=== PATIENT | female | born 1960 | race Caucasian/White ===

== ENCOUNTER → 2023-12-27 16:31 | Outpatient (CLI) | payer MEDICARE, OTHER, SELFPAY ==
--- NOTE | 2023-12-27 16:33 | DI.RAD.S_ITS ---
PROCEDURE: XR KNEE RT 3V INDICATIONS: R knee pain around the lateral tibia tubercle TECHNIQUE: 3 views of the knee were acquired. COMPARISON: None. FINDINGS: Bones: No fractures or dislocations. No suspicious bony lesions. No significant joint space narrowing or osteophytosis. Soft tissues: No joint effusion. No suspicious soft tissue calcifications. IMPRESSION: No acute bony abnormality or significant effusion. No significant degenerative change. Dictated by: Sandip Fernandez M.D. on 12/27/2023 at 17:04 Approved by: Sandip Fernandez M.D. on 12/27/2023 at 17:04
== END ==
PROVIDERS: PCP Nurse Practitioner Family; Referring Provider Nurse Practitioner Family; Visit Provider Nurse Practitioner Family
DX: M25.561 Pain in right knee (principal)
CPT/HCPCS: 73562

== ENCOUNTER → 2024-01-09 14:26 | Outpatient (CLI) | payer MEDICARE, OTHER, SELFPAY ==
--- NOTE | 2024-01-09 14:28 | DI.MG.S_ITS ---
BILATERAL DIGITAL SCREENING MAMMOGRAM 3D/2D WITH CAD: 01/09/2024 CLINICAL: Routine screening. Family history of breast cancer. Comparison is made to exams dated: 09/14/2021 mammogram - [facility], 02/28/2018 mammogram, and 04/07/2014 mammogram - [facility]. Both breasts are heterogeneously dense, which may obscure small masses (category c / 51-75% glandular tissue). Current study was also evaluated with a Computer Aided Detection (CAD) system. There are benign vascular calcifications in the left breast. No significant masses, calcifications, or other findings are seen in either breast. There has been no significant interval change. IMPRESSION: BENIGN There is no mammographic evidence of malignancy. A 1 year screening mammogram is recommended. Based on the Tyrer Cuzick model (a risk assessment model) the patient's lifetime risk is 9.0% and her 10 year risk is 4.3%. According to the ACR, ACS, and NCCN guidelines, an annual breast MRI exam along with mammogram is recommended if the patient's lifetime risk is 20% or greater. This exam was interpreted at Station ID: [id number]. NOTE: For mammograms, a report in lay terms will be sent to the patient. Approximately 15% of breast malignancies will not be visualized mammographically. In the management of a palpable breast mass, a negative mammogram must not discourage biopsy of a clinically suspicious lesion. Electronically Signed By: Rakan dacosta/dorota:01/10/2024 12:27:51 letter sent: Normal Exam ACR BI-RADS Category 2: Benign Finding(s) [id number]
--- NOTE | 2024-01-09 14:28 | DI.RAD.S_ITS ---
PROCEDURE: XR DEXA AXIAL SKELETON INDICATIONS: routine screening COMPARISON: None. FINDINGS: Lumbar Spine: L1-L3. Bone mineral density 0.931 g/cm2, T score -0.8. Left Hip: Bone mineral density 0.618 g/cm2, T score -2.7. Left Femoral Neck: Bone mineral density 0.528 g/cm2, T score -2.9. Right Hip: Bone mineral density 0.601 g/cm2, T score -2.8. Right Femoral Neck: Bone mineral density 0.541 g/cm2, T score -2.8. Fracture Risk Calculation (when applicable): 10-year fracture risk of a major osteoporotic fracture 14% and of a hip fracture 3.5%. (T score greater or equal to -1.0 to: NORMAL) (T score from -1.1 to -2.4: OSTEOPENIA) (T score less than or equal to -2.5: OSTEOPOROSIS) IMPRESSION: Osteoporosis. Follow-up guidelines as follows: Osteoporosis: Consider a repeat DEXA and Vertebral Fracture Assessment (VFA) exam in 2 years or sooner if medically necessary, to reassess this patient's status. Osteopenia: Consider a repeat DEXA in 2-3 years to reassess this patient's status, or if there is a new clinical indication. Normal: Consider a repeat DEXA in 5 years or sooner, or if there is a new clinical indication. Dictated by: Rakan Banks M.D. on 01/09/2024 at 15:24 Approved by: Rakan Banks M.D. on 01/09/2024 at 15:26
== END ==
PROVIDERS: PCP Nurse Practitioner Family; Referring Provider Nurse Practitioner Family; Visit Provider Nurse Practitioner Family
DX: M81.0 Age-related osteoporosis without current pathological fracture (principal); Z12.31 Encounter for screening mammogram for malignant neoplasm of breast; M85.89 Other specified disorders of bone density and structure, multiple sites; R92.333 Mammographic heterogeneous density, bilateral breasts; Z80.3 Family history of malignant neoplasm of breast
CPT/HCPCS: 77063; 77067; 77080

== ENCOUNTER 2024-07-09 00:05 | Inpatient (IN) | payer MEDICARE, OTHER, SELFPAY ==
[2024-07-09] VITALS (25 sets, daily range): BP systolic 106–156; BP diastolic 52–104; PULSE 86–130; RESP 12–47; TEMP 35.8–36.7; O2SAT 95–100; BMI 21.9
--- NOTE | 2024-07-09 | DI.RAD.S_ITS ---
PROCEDURE: XR GASTROGRAFIN CHALLENGE COMPARISON: [facility], CT, CT ABDOMEN PELVIS W CON, 07/09/2024, 1:02. INDICATIONS: small bowel obstruction FINDINGS: Enteric tube is seen terminating in the stomach with tip directed towards the fundus. Contrast material is seen opacifying the distal small bowel as well as the colon and rectum. IMPRESSION: Oral contrast material opacifies the colon. Approved by: Lukas Laguna M.D. on 07/09/2024 at 16:56
--- NOTE | 2024-07-09 00:24 | ED_ITS ---
HPI - General Adult General Chief complaint: Abdominal Pain Stated complaint: v/d upper gastorial pain Time Seen by Provider: 07/09/24 00:10 Source: patient and family Mode of arrival: Wheelchair History of Present Illness HPI narrative: Patient is a 63-year-old female. With a history reflux disease and asthma. Has had a hysterectomy. Is here for evaluation of less than 12 generalized abdominal pain and vomiting and also diarrhea. No urinary symptoms. Her symptoms have progressively worsened over the past couple hours. Has not tried anything for the symptoms prior to arrival. No chest pain or shortness of breath. No recent travel. No recent antibiotics. No fevers. No known sick contacts. No other members of the family having similar symptoms. Describes the pain located mostly in the epigastric region but states that it was really all over her abdomen. Related Data Home Medications Medication Instructions Recorded Confirmed esomeprazole magnesium [Nexium] PO 12/05/23 03/12/24 metoprolol tartrate 25 mg tablet 25 mg PO BID 12/05/23 03/12/24 Previous Rx's Medication Instructions Recorded benzonatate 100 mg capsule 100 mg PO BID-TID PRN cough #90 12/06/23 caps cyclobenzaprine 5 mg tablet 5 mg PO BEDTIME PRN muscle spasm 03/12/24 #30 tabs albuterol sulfate 90 mcg/actuation 2 puff inhalation Q6H PRN 07/01/24 aerosol inhaler shortness of breath or wheezing #8.5 grams Allergies Allergy/AdvReac Type Severity Reaction Status Date / Time No Known Drug Allergies Allergy Unverified 03/12/24 14:25 Review of Systems Review of Systems ROS Unobtainable: All systems reviewed & are unremarkable except as noted in HPI and below Patient History Medical History Muscle spasm of back Allergies (~2003) Depression (~2006) Osteopenia (~2014) Fracture (~2014) Foot pain (~2013) Asthma Chronic cough GERD (gastroesophageal reflux disease) (~2008) Osteoporosis (~2014) Surgical History (Updated 01/21/24 @ 18:53 by Annalisa Siddiqui) Anesthesia S/P ORIF (open reduction internal fixation) fracture (~2014) History of ovarian cystectomy (~1985) Family History (Updated 01/21/24 @ 18:54 by Annalisa Siddiqui) Father History of heart disease Mother History of heart disease Social History Smoking Status: Never smoker Smoking Status: Never smoker Substance Use Type: does not use Exam Initial Vital Signs Initial Vital Signs: Vital Signs Temperature 96.4 F L 07/09/24 00:15 Pulse Rate 130 H 07/09/24 00:15 Respiratory Rate 20 07/09/24 00:15 Blood Pressure 146/66 H 07/09/24 00:15 Pulse Oximetry 100 07/09/24 00:15 Oxygen Delivery Method Room Air 07/09/24 00:15 Const General: No comfortable (Uncomfortable appearing) HENMT Head: normal to inspection and normocephalic Resp Effort & Inspection: normal respiratory effort Auscultation: clear to auscultation bilaterally Cardio Rate: regular rate Rhythm: regular rhythm GI Inspection: normal to inspection and non-distended Palpation: soft, No firm, guarding, No rigid and tender Neuro General: patient alert, patient awake, patient oriented x3 and moves all extremities Extrem General: normal to inspection Course Orders Ordered: ED Orders 07/09/24 00:20 Complete Blood Count AUTO DIFF Stat Comprehensive Metabolic Panel Stat Lipase Stat 07/09/24 00:25 CT abdomen pelvis w con Stat 07/09/24 01:39 Consult to General Surgery Stat 07/09/24 01:44 Urine Microscopic Stat 07/09/24 01:49 CXR [XR chest 1V] Stat Discontinued Medications Al Hydrox/Mg Hydrox/Simethicone 20 ml/ Lidocaine HCl 15 ml 0 ml PO NOW ONE Stop: 07/09/24 00:16 Last Admin: 07/09/24 00:25 Dose: 35 ml Documented By: Sodium Chloride (Normal Saline 0.9%) 1,000 mls @ 1,000 mls/hr IV BOLUS ONE Stop: 07/09/24 01:25 Last Admin: 07/09/24 01:52 Dose: 1,000 mls/hr Documented By: Lidocaine HCl (Lidocaine 2% (Glydo) 6 Ml Gel) 6 ml TOP NOW ONE Stop: 07/09/24 01:44 Last Admin: 07/09/24 01:52 Dose: 6 ml Documented By: Ondansetron HCl (Ondansetron 4 Mg/2 Ml Inj) 4 mg IV NOW ONE Stop: 07/09/24 00:16 Last Admin: 07/09/24 00:25 Dose: 4 mg Documented By: Ondansetron HCl (Ondansetron 4 Mg/2 Ml Inj) 4 mg IV NOW ONE Stop: 07/09/24 01:44 Last Admin: 07/09/24 01:52 Dose: 4 mg Documented By: Pantoprazole Sodium (Pantoprazole 40 Mg Vial) 40 mg IV NOW ONE Stop: 07/09/24 00:16 Last Admin: 07/09/24 00:25 Dose: 40 mg Documented By: Vital Signs Vital signs: Vital Signs - 8 hr 07/09/24 00:15 07/09/24 00:28 07/09/24 00:30 Temperature 96.4 F L Pulse Rate 130 H 104 H 103 H Respiratory Rate 20 32 H 29 H Blood Pressure 146/66 H Pulse Oximetry 100 100 100 Oxygen Delivery Method Room Air 07/09/24 00:30 07/09/24 00:41 07/09/24 00:41 Temperature Pulse Rate 86 Respiratory Rate 24 Blood Pressure 135/78 114/52 L Pulse Oximetry 99 Oxygen Delivery Method Room Air 07/09/24 00:50 07/09/24 00:50 07/09/24 01:09 Temperature Pulse Rate 90 104 H Respiratory Rate 22 Blood Pressure 112/53 L Pulse Oximetry 98 Oxygen Delivery Method 07/09/24 01:30 07/09/24 02:00 07/09/24 02:04 Temperature Pulse Rate 109 H 118 H 101 H Respiratory Rate 22 26 H Blood Pressure Pulse Oximetry 97 100 100 Oxygen Delivery Method Room Air 07/09/24 02:04 Temperature Pulse Rate Respiratory Rate Blood Pressure 143/81 H Pulse Oximetry Oxygen Delivery Method Medical Decision Making Lab Data Lab results reviewed: Yes I reviewed the patient's lab results. 07/09/24 00:20 07/09/24 00:20 Labs: Lab Results 07/09/24 Range/Units 00:20 WBC 11.1 H (4.5-11.0) X10^3/uL RBC 4.71 (4.0-5.2) X10^6/uL Hgb 14.9 (12.0-16.0) g/dL Hct 43.5 (36-46) % MCV 92.3 (80-100) fL MCH 31.6 (26-34) PG MCHC 34.2 (30-36) % RDW 13.3 (11.6-14.8) % Plt Count 165 (150-400) X10^3/uL Neut % (Auto) 77.2 H (50-75) % Lymph % (Auto) 14.0 L (25-40) % [place] % (Auto) 6.0 (3-14) % Eos % (Auto) 2.3 (2-4) % Baso % (Auto) 0.5 (0-2) % Neut # (Auto) 8600 H (2053-6839) /uL Lymph # (Auto) 1600 (5422-5306) /uL [place] # (Auto) 700 (0-900) /uL Eos # (Auto) 300 (0-450) /uL Baso # (Auto) 100 (0-100) /uL Sodium 137 (137-145) mmol/L Potassium 4.1 (3.4-5.1) mmol/L Chloride 100 (98-107) mmol/L Carbon Dioxide 20 L (22-32) mmol/L BUN 22 H (7-17) mg/dL Creatinine 0.76 (0.52-1.04) mg/dL Estimated GFR > 60 (>60) mL/min BUN/Creatinine Ratio 28.9 H (6-22) Glucose 173 H (80-110) mg/dL Calcium 11.1 H (8.4-10.2) mg/dL Total Bilirubin 0.9 (0.2-1.3) mg/dL AST 42 H (14-36) IU/L ALT 21 (<35) IU/L Alkaline Phosphatase 85 (38-126) U/L Total Protein 8.8 H (6.3-8.2) g/dL Albumin 5.5 H (3.5-5.0) g/dL Globulin 3.3 (1.7-4.1) g/dL Albumin/Globulin Ratio 1.7 (1.0-2.8) Lipase 160 (23-300) U/L Urine Dip Bedside Urine Glucose Negative Bedside Urine Bilirubin - Negative Bedside Urine Ketone ++ 40 Urine Specific [place] 1.010 Bedside Urine Occult Blood ++ Bedside Urine pH 5.5 Bedside Urine Protein - Negative Bedside Urine Urobilinogen - Negative Bedside Urine Nitrite - Negative Bedside Urine Leukocytes - Negative Esterase Point of care testing: Urine Dip Bedside Urine Glucose Negative Bedside Urine Bilirubin - Negative Bedside Urine Ketone ++ 40 Urine Specific [place] 1.010 Bedside Urine Occult Blood ++ Bedside Urine pH 5.5 Bedside Urine Protein - Negative Bedside Urine Urobilinogen - Negative Bedside Urine Nitrite - Negative Bedside Urine Leukocytes - Negative Esterase Imaging Data CT scan - abdomen/pelvis: Radiologist's Impression: PROCEDURE: CT ABDOMEN PELVIS W CON INDICATIONS: Epigastric abdominal pain TECHNIQUE: After the administration of intravenous contrast, axial sections acquired from the lung bases to the pubic symphysis. Coronal and sagittal reformats were performed. For radiation dose reduction, the following was used: automated exposure control, adjustment of mA and/or kV according to patient size. COMPARISON: None. FINDINGS: Image quality: Diagnostic Lower chest: Mild basal atelectasis. Trace hiatal hernia. Mild distal esophageal wall thickening. Normal heart size. Liver: Unremarkable. Subcentimeter left lobe lesion is too small to characterize, most commonly a cyst Gallbladder and biliary system: Unremarkable, nondilated Pancreas: No ductal dilation. Spleen: Nonenlarged Adrenals: No discrete nodules Kidneys: No solid mass. No hydronephrosis. Vessels and lymph nodes: Main portal vein appears patent. Atherosclerotic calcifications are present. No pathologic lymph nodes by size criteria. Bowel and peritoneum: There is mild gastric distention. Small bowel obstruction, with moderately dilated loops measuring 3-4 cm in the distal jejunum, and ileum. The dilation extends up to the terminal ileum, with there is edematous fat stranding and soft tissue thickening, also involving the cecum in the expected region of the appendix. Small amount pelvic free fluid is present. Incidental note of jejunal loops mostly located in the right abdomen. Body wall: Unremarkable Pelvis: Bladder is unremarkable. Reproductive organs are unremarkable on limited CT evaluation right ovarian simple appearing 1.6 cm cyst is present. Bones: No acute or suspicious osseous finding IMPRESSION: Small bowel obstruction, with transition point at the terminal ileum. Moderate surrounding edema and soft tissue thickening in this region, also involving the cecum and the expected region of the appendix. Underlying inflammation, soft tissue lesion, or stricture are possible. Small amount pelvic free fluid, probably reactive. Mild wall thickening of the distal esophagus also seen, probably esophagitis. Other findings above. MDM Narrative Medical decision making narrative: Patient very uncomfortable appearing upon arrival. Upon my initial evaluation she was having generalized abdominal pain. Received medications upon arrival which did seem to help her nausea and her pain quite a bit. Labs are relatively unremarkable. CT scan concerning for small bowel obstruction. I did discuss the case with Dr. Degroot on-call for General surgery. The patient is having return of the nausea. Because of this will place an NG tube. Patient will require admission to the hospital for further evaluation and treatment. Discussed case with Dr. Donaldson who will admit. Discharge Plan Departure Patient Disposition: Admitted As Inpatient Clinical Impression: Small bowel obstruction
[2024-07-09] MEDS: PANTOPRAZOLE 40 MG VIAL IV (00:25)
[2024-07-09] MEDS: MAG HYDROX/ALUMINUM/SIMETH SUS 20 ML, LIDOCAINE VISCOUS 2% 15 ML PO (00:25)
[2024-07-09] MEDS: ONDANSETRON 4 MG/2 ML INJ IV ×4 (00:25→15:49)
[2024-07-09 00:38] LABS: Add Manual Diff / Slide Review NO; Basophils Absolute Auto 100 /uL (0-100); Basophils Percent Auto 0.5 % (0-2); Eosinophils Absolute Auto 300 /uL (0-450); Eosinophils Percent Auto 2.3 % (2-4); Hematocrit 43.5 % (36-46); Hemoglobin 14.9 g/dL (12.0-16.0); Lymphocytes Absolute Auto 1600 /uL (1100-4500); Mean Corpuscular HGB Conc 34.2 % (30-36); Mean Corpuscular Hemoglobin 31.6 PG (26-34); Mean Corpuscular Volume 92.3 fL (80-100); Monocytes Absolute Auto 700 /uL (0-900); Neutrophils Absolute Auto 8600 /uL (1500-7000); Neutrophils Percent Auto 77.2 % (50-75); Platelet Count 165 X10^3/uL (150-400); Red Blood Cell Count 4.71 X10^6/uL (4.0-5.2); Red Cell Distribution Width 13.3 % (11.6-14.8); White Blood Cell Count 11.1 X10^3/uL (4.5-11.0)
[2024-07-09 00:52] LABS: Alanine Aminotransferase 21 IU/L (<35); Albumin 5.5 g/dL (3.5-5.0); Albumin Globulin Ratio 1.7 (1.0-2.8); Alkaline Phosphatase 85 U/L (38-126); Aspartate Aminotransferase 42 IU/L (14-36); BUN Creatinine Ratio 28.9 (6-22); Bilirubin Total 0.9 mg/dL (0.2-1.3); Blood Urea Nitrogen 22 mg/dL (7-17); Calcium 11.1 mg/dL (8.4-10.2); Carbon Dioxide 20 mmol/L (22-32); Chloride 100 mmol/L (98-107); Estimated Glomerular Filt Rate > 60 mL/min (>60); Globulin 3.3 g/dL (1.7-4.1); Glucose 173 mg/dL (80-110); HEMOLYSIS 38 (0-50); Lipase 160 U/L (23-300); Potassium 4.1 mmol/L (3.4-5.1); Sodium 137 mmol/L (137-145); Total Protein 8.8 g/dL (6.3-8.2)
--- NOTE | 2024-07-09 01:49 | DI.RAD.S_ITS ---
PROCEDURE: XR CHEST 1V INDICATIONS: NG tube placement confirmation TECHNIQUE: One view of the chest was acquired. COMPARISON: None. FINDINGS: Surgical changes and devices: None. Lungs and pleura: Lungs are clear. No pleural effusions or pneumothorax. Mediastinum: Mediastinal contours appear normal. Heart size is normal. Bones and chest wall: No suspicious bony lesions. Overlying soft tissues appear unremarkable. IMPRESSION: 1. The nasogastric tube tip projects over the fundus of the stomach, and appears to be in appropriate position. 2. No acute cardiopulmonary abnormality is seen. Dictated by: Leon Pettit M.D. on 07/09/2024 at 8:16 Approved by: Leon Pettit M.D. on 07/09/2024 at 8:17
[2024-07-09] MEDS: LIDOCAINE 2% (GLYDO) 6 ML GEL TOP (01:52)
[2024-07-09] MEDS: SODIUM CHLORIDE 0.9% 1,000 ML 1000 ML IV (01:52)
--- NOTE | 2024-07-09 02:21 | PM.HP.1 ---
History of Present Illness History of Present Illness Date Patient Seen: 07/09/24 Time Patient Seen: 05:00 Chief complaint: abdominal pain, nausea Narrative: 63 y/o with PMH of hysterectomy, came to ED after smita developed abdominal pain and nausea. Images show small bowel obstruction. Had NGT placed for sucction. Discussed between ED and Sx. Admitted as NPO, on IVFs, with a diagnosis of SBO. [facility] Medical History Muscle spasm of back Allergies (~2003) Depression (~2006) Osteopenia (~2014) Fracture (~2014) Foot pain (~2013) Asthma Chronic cough GERD (gastroesophageal reflux disease) (~2008) Osteoporosis (~2014) Surgical History Anesthesia S/P ORIF (open reduction internal fixation) fracture (~2014) History of ovarian cystectomy (~1985) Family History Father History of heart disease Mother History of heart disease Social History household members: spouse Smoking Status: Never smoker alcohol intake: current Meds Home Medications and Allergies Home Medications Medication Instructions Recorded Confirmed Type esomeprazole magnesium [Nexium] PO 12/05/23 03/12/24 History metoprolol tartrate 25 mg tablet 50 mg PO BID 12/05/23 07/09/24 History benzonatate 100 mg capsule 100 mg PO BID-TID PRN cough #90 12/06/23 07/09/24 Rx caps cyclobenzaprine 5 mg tablet 5 mg PO BEDTIME PRN muscle spasm 03/12/24 07/09/24 Rx #30 tabs albuterol sulfate 90 mcg/actuation 2 puff inhalation Q6H PRN 07/01/24 07/09/24 Rx aerosol inhaler shortness of breath or wheezing #8.5 grams esomeprazole magnesium 20 mg 20 mg PO BID 07/09/24 07/09/24 History capsule,delayed release (Nexium) Allergies Allergy/AdvReac Type Severity Reaction Status Date / Time No Known Drug Allergies Allergy Unverified 03/12/24 14:25 Review of Systems Constitutional Comments: w/o fever or chills w/o weight loss Cardiovascular Comments: w/o chest pain Respiratory Comments: w/o excessive shortness of breath, has chronic mild asthma Gastrointestinal Comments: nausea, abdominal pain Genitourinary Comments: w/o voiding difficulties or dysuria Musculoskeletal Comments: w/o myalgia Exam Vital Signs (past 8 hours): - 07/09/24 00:15 07/09/24 00:28 07/09/24 00:30 Temperature 96.4 F L Pulse Rate 130 H 104 H 103 H Respiratory Rate 20 32 H 29 H Blood Pressure 146/66 H Pulse Oximetry 100 100 100 Oxygen Delivery Method Room Air 07/09/24 00:30 07/09/24 00:41 07/09/24 00:41 Temperature Pulse Rate 86 Respiratory Rate 24 Blood Pressure 135/78 114/52 L Pulse Oximetry 99 Oxygen Delivery Method Room Air 07/09/24 00:50 07/09/24 00:50 07/09/24 01:09 Temperature Pulse Rate 90 104 H Respiratory Rate 22 Blood Pressure 112/53 L Pulse Oximetry 98 Oxygen Delivery Method 07/09/24 01:30 07/09/24 02:00 07/09/24 02:04 Temperature Pulse Rate 109 H 118 H 101 H Respiratory Rate 22 26 H Blood Pressure Pulse Oximetry 97 100 100 Oxygen Delivery Method Room Air 07/09/24 02:04 Temperature Pulse Rate Respiratory Rate Blood Pressure 143/81 H Pulse Oximetry Oxygen Delivery Method Oxygen Delivery Method Room Air Const Other: in no distress HENMT Other: normocephalic, NGT in place Eyes Other: normal appearance, EOMI Neck Other: supple Resp Other: normal respiratory effort Cardio Other: RRR GI Other: mininimal abdominal distension, hypoactive sounds Skin Other: not jaundiced, w/o rashes Neuro Other: w/o deficits Extrem Other: w/o swelling Psych Other: appropriate mood, lucid Objective Labs 07/09/24 00:20 07/09/24 00:20 Labs: Laboratory Results - last 24 hr 07/09/24 00:20 WBC 11.1 H RBC 4.71 Hgb 14.9 Hct 43.5 MCV 92.3 MCH 31.6 MCHC 34.2 RDW 13.3 Plt Count 165 Neut % (Auto) 77.2 H Lymph % (Auto) 14.0 L [place] % (Auto) 6.0 Eos % (Auto) 2.3 Baso % (Auto) 0.5 Neut # (Auto) 8600 H Lymph # (Auto) 1600 [place] # (Auto) 700 Eos # (Auto) 300 Baso # (Auto) 100 Sodium 137 Potassium 4.1 Chloride 100 Carbon Dioxide 20 L BUN 22 H Creatinine 0.76 Estimated GFR > 60 BUN/Creatinine Ratio 28.9 H Glucose 173 H Calcium 11.1 H Total Bilirubin 0.9 AST 42 H ALT 21 Alkaline Phosphatase 85 Total Protein 8.8 H Albumin 5.5 H Globulin 3.3 Albumin/Globulin Ratio 1.7 Lipase 160 Assessment & Plan Assessment and plan (1) Small bowel obstruction: Status: Acute (2) Depression: Status: Acute (3) Asthma: Qualifiers: Asthma complication type: uncomplicated Asthma persistence: persistent Asthma severity: moderate Qualified Code(s): J45.40 - Moderate persistent asthma, uncomplicated Status: Acute (4) GERD (gastroesophageal reflux disease): Qualifiers: Esophagitis presence: without esophagitis Qualified Code(s): K21.9 - Gastro-esophageal reflux disease without esophagitis Status: Acute Assessment & Plan narrative: SBO - NPO, NGT for low, intermittent sucction - evaluation by surgery for possible OR, for now conservative management Asthma - albuterol prn GERD - PPI IV Depression - restart home medications with restarted PO intake DVT prophylaxis - SCDs Time-Based Coding :: [TOTAL MINUTES] spent with patient and on the chart (including review of chart, obtaining history, exam, reviewing outside data, placing orders, documenting exam and treatment plan, and counseling patient) on [DATE].
[2024-07-09 02:32] LABS: RBC Urine 0-1/HPF (0-5/HPF); Urine Volume 10mL (spun)
[2024-07-09 02:35] LABS: Bacteria Urine None Seen; Culture Indicated Urine Cult Not Indicated; Squamous Epithelial Cell Urine 0-1 /HPF (0-5/HPF); WBC Urine None Seen (0-5/HPF)
[2024-07-09] MEDS: METOCLOPRAMIDE 10 MG/2 ML INJ IV (02:48)
[2024-07-09] MEDS: ACETAMINOPHEN IV 1,000 MG/100 ML VIAL 400 MG IV (02:48)
[2024-07-09] MEDS: LACTATED RINGERS 1,000 ML 100 ML IV ×2 (02:48→13:14)
--- NOTE | 2024-07-09 06:40 | PC.NURSE ---
Admit/NOC Shift Note- Patient arrived to room via stretcher from ER at 0400. Patient walked on her own with steady gait from stretcher to bathroom and then to bed with out issue. Patient alert and oriented and able to make needs known to staff. medication list reviewed with patient, admit questions done, and physical assessment done. Patient oriented to bed and bed controls, room, bathroom, lights, phone, and call howard/tv remote. safety measures in place. Patient agrees to call for assistance as needed. Call howrad and phone within reach. will continue to monitor.
[2024-07-09 06:44] LABS: Add Manual Diff / Slide Review NO; Basophils Percent Auto 0.2 % (0-2); Eosinophils Percent Auto 0.3 % (2-4); Hematocrit 36.5 % (36-46); Hemoglobin 12.5 g/dL (12.0-16.0); Mean Corpuscular HGB Conc 34.2 % (30-36); Mean Corpuscular Hemoglobin 31.5 PG (26-34); Mean Corpuscular Volume 92.2 fL (80-100); Monocytes Percent Auto 5.2 % (3-14); Neutrophils Percent Auto 87.3 % (50-75); Platelet Count 196 X10^3/uL (150-400); Red Blood Cell Count 3.95 X10^6/uL (4.0-5.2); Red Cell Distribution Width 13.1 % (11.6-14.8); White Blood Cell Count 6.8 X10^3/uL (4.5-11.0)
[2024-07-09 06:45] LABS: Basophils Absolute Auto 0 /uL (0-100); Eosinophils Absolute Auto 0 /uL (0-450); Lymphocytes Absolute Auto 500 /uL (1100-4500); Monocytes Absolute Auto 400 /uL (0-900); Neutrophils Absolute Auto 5900 /uL (1500-7000)
[2024-07-09 06:49] LABS: BUN Creatinine Ratio 28.8 (6-22); Blood Urea Nitrogen 19 mg/dL (7-17); Calcium 9.2 mg/dL (8.4-10.2); Carbon Dioxide 23 mmol/L (22-32); Chloride 105 mmol/L (98-107); Estimated Glomerular Filt Rate > 60 mL/min (>60); Glucose 133 mg/dL (80-110); HEMOLYSIS < 15 (0-50); Potassium 3.9 mmol/L (3.4-5.1); Sodium 136 mmol/L (137-145)
--- NOTE | 2024-07-09 07:47 | P.CONS_ITS ---
History of Present Illness Consult details Date Patient Seen: 07/09/24 Time Patient Seen: 07:47 Chief complaint: abdominal pain, nausea Narrative: Evonne is a 63 year old woman who presented to the ER overnight complaining of several hours of abdominal pain, nausea. A CT scan shows a small bowel obstruction with an appearance transition point in the ileum in the low mid pelvis. There is some free fluid in the pelvis. She has never had a small bowel obstruction before. A nasogastric tube was placed. She feels improved since NG tube decompression. Meds Home Medications and Allergies Home Medications Medication Instructions Recorded Confirmed Type esomeprazole magnesium [Nexium] PO 12/05/23 03/12/24 History metoprolol tartrate 25 mg tablet 50 mg PO BID 12/05/23 07/09/24 History benzonatate 100 mg capsule 100 mg PO BID-TID PRN cough #90 12/06/23 07/09/24 Rx caps cyclobenzaprine 5 mg tablet 5 mg PO BEDTIME PRN muscle spasm 03/12/24 07/09/24 Rx #30 tabs albuterol sulfate 90 mcg/actuation 2 puff inhalation Q6H PRN 07/01/24 07/09/24 Rx aerosol inhaler shortness of breath or wheezing #8.5 grams esomeprazole magnesium 20 mg 20 mg PO BID 07/09/24 07/09/24 History capsule,delayed release (Nexium) Allergies Allergy/AdvReac Type Severity Reaction Status Date / Time No Known Drug Allergies Allergy Unverified 03/12/24 14:25 Exam Vital Signs (past 8 hours): - 07/09/24 00:15 07/09/24 00:28 07/09/24 00:30 Temperature 96.4 F L Pulse Rate 130 H 104 H 103 H Respiratory Rate 20 32 H 29 H Blood Pressure 146/66 H Pulse Oximetry 100 100 100 Oxygen Delivery Method Room Air 07/09/24 00:30 07/09/24 00:41 07/09/24 00:41 Temperature Pulse Rate 86 Respiratory Rate 24 Blood Pressure 135/78 114/52 L Pulse Oximetry 99 Oxygen Delivery Method Room Air 07/09/24 00:50 07/09/24 00:50 07/09/24 01:09 Temperature Pulse Rate 90 104 H Respiratory Rate 22 Blood Pressure 112/53 L Pulse Oximetry 98 Oxygen Delivery Method 07/09/24 01:30 07/09/24 02:00 07/09/24 02:04 Temperature Pulse Rate 109 H 118 H 101 H Respiratory Rate 22 26 H Blood Pressure Pulse Oximetry 97 100 100 Oxygen Delivery Method Room Air 07/09/24 02:04 07/09/24 02:10 07/09/24 02:10 Temperature Pulse Rate 96 H Respiratory Rate 18 Blood Pressure 143/81 H 146/85 H Pulse Oximetry 100 Oxygen Delivery Method 07/09/24 02:20 07/09/24 02:20 07/09/24 02:30 Temperature Pulse Rate 102 H 115 H Respiratory Rate 15 26 H Blood Pressure 143/84 H Pulse Oximetry 95 97 Oxygen Delivery Method Room Air 07/09/24 02:30 07/09/24 02:40 07/09/24 02:40 Temperature Pulse Rate 127 H Respiratory Rate 47 H Blood Pressure 139/80 150/104 H Pulse Oximetry 97 Oxygen Delivery Method 07/09/24 02:50 07/09/24 02:50 07/09/24 03:00 Temperature Pulse Rate 95 H Respiratory Rate 21 Blood Pressure 156/71 H 141/67 H Pulse Oximetry 98 Oxygen Delivery Method 07/09/24 03:00 07/09/24 03:10 07/09/24 03:10 Temperature Pulse Rate 94 H 98 H Respiratory Rate 12 25 H Blood Pressure 127/61 Pulse Oximetry 95 96 Oxygen Delivery Method 07/09/24 03:20 07/09/24 03:20 07/09/24 03:30 Temperature Pulse Rate 99 H Respiratory Rate 22 Blood Pressure 129/62 147/76 H Pulse Oximetry 95 Oxygen Delivery Method 07/09/24 03:30 07/09/24 03:40 07/09/24 03:40 Temperature Pulse Rate 95 H 94 H Respiratory Rate 14 14 Blood Pressure 145/78 H Pulse Oximetry 95 96 Oxygen Delivery Method 07/09/24 03:45 07/09/24 03:50 07/09/24 03:50 Temperature Pulse Rate 112 H Respiratory Rate 18 Blood Pressure 146/80 H Pulse Oximetry 96 Oxygen Delivery Method Room Air Room Air Oxygen Delivery Method Room Air Narrative Exam Narrative: Abdomen is soft, moderately tender to palpation in the low mid abdomen Const General: healthy appearing Resp Effort & Inspection: normal respiratory effort Objective Labs 07/09/24 06:29 07/09/24 06:29 Labs: Laboratory Results - last 24 hr 07/09/24 07/09/24 07/09/24 00:20 01:44 06:29 WBC 11.1 H 6.8 RBC 4.71 3.95 L Hgb 14.9 12.5 Hct 43.5 36.5 MCV 92.3 92.2 MCH 31.6 31.5 MCHC 34.2 34.2 RDW 13.3 13.1 Plt Count 165 196 Neut % (Auto) 77.2 H 87.3 H Lymph % (Auto) 14.0 L 7.0 L [place] % (Auto) 6.0 5.2 Eos % (Auto) 2.3 0.3 L Baso % (Auto) 0.5 0.2 Neut # (Auto) 8600 H 5900 Lymph # (Auto) 1600 500 L [place] # (Auto) 700 400 Eos # (Auto) 300 0 Baso # (Auto) 100 0 Sodium 137 136 L Potassium 4.1 3.9 Chloride 100 105 Carbon Dioxide 20 L 23 BUN 22 H 19 H Creatinine 0.76 0.66 Estimated GFR > 60 > 60 BUN/Creatinine Ratio 28.9 H 28.8 H Glucose 173 H 133 H Calcium 11.1 H 9.2 Total Bilirubin 0.9 AST 42 H ALT 21 Alkaline Phosphatase 85 Total Protein 8.8 H Albumin 5.5 H Globulin 3.3 Albumin/Globulin Ratio 1.7 Lipase 160 Urine RBC 0-1/hpf Urine WBC None seen Ur Squamous Epith Cells 0-1 /hpf Urine Bacteria None seen Ur Culture Indicated? Cult not indicated Vol Urine Centrifuged 10ml (spun) [facility], [facility] Medical History Muscle spasm of back Allergies (~2003) Depression (~2006) Osteopenia (~2014) Fracture (~2014) Foot pain (~2013) Asthma Chronic cough GERD (gastroesophageal reflux disease) (~2008) Osteoporosis (~2014) Surgical History Anesthesia S/P ORIF (open reduction internal fixation) fracture (~2014) History of ovarian cystectomy (~1985) Family History Father History of heart disease Mother History of heart disease Social History household members: spouse Tobacco & Substance Use Smoking Status: Never smoker alcohol intake: current Assessment & Plan Assessment and plan (1) Small bowel obstruction: Status: Acute Plan 63-year-old woman with an acute high-grade small bowel obstruction. I recommend we proceed with a diagnostic laparoscopy as the CT appears to show a high-grade small-bowel obstruction. I discussed the possibility of small-bowel resection. She would like to proceed. Time-Based Coding :: [TOTAL MINUTES] spent with patient and on the chart (including review of chart, obtaining history, exam, reviewing outside data, placing orders, documenting exam and treatment plan, and counseling patient) on [DATE].
--- NOTE | 2024-07-09 12:29 | CM.DANOTE ---
Initial DCP Assessment Note Pt is a 63 yo female, resident of [place], arrives with abd pain and nausea, patient scheduled for surgery this afternoon- diagnostic laparoscopy; CT appears to show a high-grade small-bowel obstruction. PCP: Kassidy Ojeda Payer: DENICE/Jonny Reviewed chart, pt discussed in multidisciplinary rounds this morning. Patient is indp and active at baseline and is not expected to have any needs from this CM team. No barriers identified at this time to patient's safe discharge home w/family to assist; close outpatient f/u recommended. CM team will plan to follow clinical course closely in case any DC needs or concerns arise. LEONIE Whalen Discharge Planning/Care Management CM Discharge Assessment Start: 07/09/24 12:26 Freq: Status: Active Protocol: Document 07/09/24 12:26 RUDI (Rec: 07/09/24 12:29 RUDI [id number]) Discharge Planning Assessment Assigned Investigator Internal Affairs LEONIE Donohue DPOA/Assigned Designee Name Emmanuel Sánchez, spouse Contact Information [phone] Advance Directives? No History Provided By Patient,Medical Record Prior Living Arrangements House Household Members spouse Type of transporation used prior to Drives own vehicle admit Independent with ADL's Yes Is patient alert and oriented? Yes Barriers to Discharge No Discharge Plan Home Transportation Arrangement Family Referrals Initiated None needed
[2024-07-09] MEDS: ACETAMINOPHEN 325 MG TABLET 650 MG PO (13:14)
--- NOTE | 2024-07-09 15:17 | PC.NURSE ---
Day shift: Patient's HR up to 160 while ambulating to BR. Decreased to 120s when back to bed this afternoon. Notified MD Murrell. He stated he was not concerned since she is deconditioned and she remains in sinus rhythm. Patient had 2 large watery BMs after gastrogafin put into NG tube. NG tube clamped for study from approximately 12-4pm. Surgery likely cancelled due to gastrogofin study. Will continue to monitor.
[2024-07-09] MEDS: METOPROLOL ER 50 MG TABLET PO (15:49)
--- NOTE | 2024-07-09 17:09 | P.HP_ITS ---
History of Present Illness History of Present Illness Date Patient Seen: 07/09/24 Time Patient Seen: 09:00 Chief complaint: abdominal pain, nausea Narrative: Per overnight provider, 63 y/o with PMH of hysterectomy, exploratory laparoscopy came to ED after smita developed abdominal pain and nausea. Images show small bowel obstruction. Had NGT placed for sucction. Discussed between ED and Sx. Admitted as NPO, on IVFs, with a diagnosis of SBO. Interval events: Patient was seen later this morning, after surgeon. She started having gas this morning, nausea resolved. Gastrograffin this afternoon shows no obstruction. Will remove NG tube tonight and start on clears. [facility] Medical History Muscle spasm of back Allergies (~2003) Depression (~2006) Osteopenia (~2014) Fracture (~2014) Foot pain (~2013) Asthma Chronic cough GERD (gastroesophageal reflux disease) (~2008) Osteoporosis (~2014) Surgical History Anesthesia S/P ORIF (open reduction internal fixation) fracture (~2014) History of ovarian cystectomy (~1985) Family History Father History of heart disease Mother History of heart disease Social History household members: spouse Smoking Status: Never smoker alcohol intake: current Meds Home Medications and Allergies Home Medications Medication Instructions Recorded Confirmed Type metoprolol tartrate 25 mg tablet 50 mg PO BID 12/05/23 07/09/24 History benzonatate 100 mg capsule 100 mg PO BID-TID PRN cough #90 12/06/23 07/09/24 Rx caps cyclobenzaprine 5 mg tablet 5 mg PO BEDTIME PRN muscle spasm 03/12/24 07/09/24 Rx #30 tabs albuterol sulfate 90 mcg/actuation 2 puff inhalation Q6H PRN 07/01/24 07/09/24 Rx aerosol inhaler shortness of breath or wheezing #8.5 grams esomeprazole magnesium 20 mg 20 mg PO BID 07/09/24 07/09/24 History capsule,delayed release (Nexium) Allergies Allergy/AdvReac Type Severity Reaction Status Date / Time No Known Drug Allergies Allergy Unverified 03/12/24 14:25 Review of Systems Review of Systems Narrative: All other systems reviewed with the patient and are negative unless otherwise stated. Exam Vital Signs (past 8 hours): - 07/09/24 15:49 07/09/24 16:28 Pulse Rate 118 H 110 H Oxygen Delivery Method Room Air Oxygen Flow Rate 0 Narrative Exam Narrative: General:? Patient is well developed and well nourished, in no distress at this time. NG tube still in place, no output currently. Chest:? Normal AP diameter and contour without kyphoscoliosis, no tachypnea, equal chest rise bilaterally. Lungs:? CTA b/l no wheezing rhonchi or rales. Cardio:?RRR no m/r/g. Abdomen: S NT ND. Musculoskeletal:? Muscle strength and tone are equal within normal limits, no deformity. Extremities: No edema or joint effusions. No cyanosis or clubbing. Skin:? Pale,? Warm to touch,dry and intact without rashes, ulcerations or petechiae.? Neuro:? Alert and orientated x3,? sensation to touch intact in all extremities, no gross deficits noted of cranial nerves. Psych:? Patient has a well-kept appearance, appropriate affect, mental status attitude thought context and judgment are appropriate for age. Objective Labs 07/09/24 06:29 07/09/24 06:29 Labs: Laboratory Results - last 24 hr 07/09/24 07/09/24 07/09/24 00:20 01:44 06:29 WBC 11.1 H 6.8 RBC 4.71 3.95 L Hgb 14.9 12.5 Hct 43.5 36.5 MCV 92.3 92.2 MCH 31.6 31.5 MCHC 34.2 34.2 RDW 13.3 13.1 Plt Count 165 196 Neut % (Auto) 77.2 H 87.3 H Lymph % (Auto) 14.0 L 7.0 L [place] % (Auto) 6.0 5.2 Eos % (Auto) 2.3 0.3 L Baso % (Auto) 0.5 0.2 Neut # (Auto) 8600 H 5900 Lymph # (Auto) 1600 500 L [place] # (Auto) 700 400 Eos # (Auto) 300 0 Baso # (Auto) 100 0 Sodium 137 136 L Potassium 4.1 3.9 Chloride 100 105 Carbon Dioxide 20 L 23 BUN 22 H 19 H Creatinine 0.76 0.66 Estimated GFR > 60 > 60 BUN/Creatinine Ratio 28.9 H 28.8 H Glucose 173 H 133 H Calcium 11.1 H 9.2 Total Bilirubin 0.9 AST 42 H ALT 21 Alkaline Phosphatase 85 Total Protein 8.8 H Albumin 5.5 H Globulin 3.3 Albumin/Globulin Ratio 1.7 Lipase 160 Urine RBC 0-1/hpf Urine WBC None seen Ur Squamous Epith Cells 0-1 /hpf Urine Bacteria None seen Ur Culture Indicated? Cult not indicated Vol Urine Centrifuged 10ml (spun) Assessment & Plan Assessment & Plan narrative: SBO - Now resolved after NG tube. Discussed with surgeon extensively today. - Okay to remove NG tube, start clears. Advance diet as tolerated. Will order breakfast for tomorrow AM Asthma - albuterol prn GERD - PPI IV Depression - no current medications H/o atrial tachycardia - developed run of SVT on monitor today. Improved with metoprolol. Continue metoprolol BID. DVT prophylaxis - SCDs, low risk patient is ambulatory Code: Full, surrogate is patient's spouse I have utilized all available immediate resources to obtain, update, or review the patient's current medications. Dispo: patient admitted under inpatient status. Discharge home tomorrow if tolerating a diet. Additional history obtained via discussions with the overnight provider and surgeon. These discussions contributed to the creation of the above assessment and plan. I have reviewed patient's presenting documentation, labs, and imaging personally. Time-Based Coding :: [TOTAL MINUTES] spent with patient and on the chart (including review of chart, obtaining history, exam, reviewing outside data, placing orders, documenting exam and treatment plan, and counseling patient) on [DATE]. Quality VTE Deep Vein Thrombosis/Pulmonary Embolism Present on Admission: No
[2024-07-10] VITALS: BP 115/57; PULSE 85; RESP 18; TEMP 36.5; O2SAT 97
[2024-07-10] MEDS: ACETAMINOPHEN 325 MG TABLET 650 MG PO (05:06)
[2024-07-10 05:55] VITALS: BP 122/67; PULSE 86; RESP 18; TEMP 36.2; O2SAT 94
[2024-07-10 08:00] VITALS: BP 146/93; PULSE 90; RESP 12; TEMP 36.6; O2SAT 98
[2024-07-10 08:59] VITALS: BP 146/93; PULSE 90
[2024-07-10] MEDS: METOPROLOL ER 50 MG TABLET PO (08:59)
--- NOTE | 2024-07-10 08:59 | PM.CALLCOV.1 ---
Call Coverage Note Note Date of Patient Contact: 07/10/24 Time of Patient Contact: 09:00 Narrative of Care Provided: gastrografin study reviewed contrast within the colon sbo resolved. Advance diet if tolerant ok for dc home
--- NOTE | 2024-07-10 10:55 | PM.DS.1 ---
History of Present Illness History of Present Illness Chief complaint: abdominal pain, nausea Narrative: From H&P: 63 y/o with PMH of hysterectomy, exploratory laparoscopy came to ED after smita developed abdominal pain and nausea. Images show small bowel obstruction. Had NGT placed for sucction. Discussed between ED and Sx. Admitted as NPO, on IVFs, with a diagnosis of SBO. Interval events: Patient was seen later this morning, after surgeon. She started having gas this morning, nausea resolved. Gastrograffin this afternoon shows no obstruction. Will remove NG tube tonight and start on clears. Discharge Providers Provider Date of admission: 07/09/24 02:13 Discharge Date: 07/10/24 Primary care physician: LY Barfield- Consults: 07/09/24 01:39 Consult to General Surgery Stat Comment: Consulting Provider: Omar Degroot Reason for consultation: SOB Has provider been notified: Yes Discharge provider: Daren Tam MD Summary Hospital Course Discharge Diagnosis: 1. SBO, present on admission and resolved. 2. Asthma, stable. 3. GERD, stable. 4. Depression, stable. 5. H/o atrial tachycardia, stable. Hospital Course: She was admitted with a bowel obstruction initially decompressed with a NG tube. She improved rapidly, this is removed and an upper GI was unremarkable. She was able to advance diet in the day of discharge without difficulty and denied any abdominal pain. She will be discharged with reassurance. Status at Discharge Cognitive/behavioral status at discharge: oriented Functional status at discharge: independent ambulation Overall status at discharge: patient is back to baseline Time Spent with Patient Time spent: Greater than 30 minutes Exam Vital Signs (past 8 hours): - 07/10/24 05:55 07/10/24 08:00 07/10/24 08:59 Temperature 97.1 F L 97.8 F Pulse Rate 86 90 90 Respiratory Rate 18 12 Blood Pressure 122/67 146/93 H 146/93 H Pulse Oximetry 94 98 Oxygen Flow Rate 0 0 Oxygen Delivery Method Room Air Oxygen Flow Rate 0 Narrative Exam Narrative: NAD, alert and oriented. Fluent speech. Lungs are clear, normal rate and effort. Heart is regular, no murmur gallop or rub. Abdomen is soft, non distended. Extremities are free of edema. Objective Imaging Multiple studies:: Radiologist's impression: Chest x-ray: 1. The nasogastric tube tip projects over the fundus of the stomach, and appears to be in appropriate position. 2. No acute cardiopulmonary abnormality is seen. Abdomen and pelvis CT: Small bowel obstruction, with transition point at the terminal ileum. Moderate surrounding edema and soft tissue thickening in this region, also involving the cecum and the expected region of the appendix. Underlying inflammation, soft tissue lesion, or stricture are possible. Small amount pelvic free fluid, probably reactive. Mild wall thickening of the distal esophagus also seen, probably esophagitis. Other findings above. Gastrografin study: IMPRESSION: Oral contrast material opacifies the colon. Labs 07/09/24 06:29 07/09/24 06:29 [facility] Medical History Muscle spasm of back Allergies (~2003) Depression (~2006) Osteopenia (~2014) Fracture (~2014) Foot pain (~2013) Asthma Chronic cough GERD (gastroesophageal reflux disease) (~2008) Osteoporosis (~2014) Surgical History Anesthesia S/P ORIF (open reduction internal fixation) fracture (~2014) History of ovarian cystectomy (~1985) Family History Father History of heart disease Mother History of heart disease Social History household members: spouse Smoking Status: Never smoker alcohol intake: current Discharge Assessment & Plan Assessment and Plan Assessment: 1. SBO, present on admission and resolved. 2. Asthma, stable. 3. GERD, stable. 4. Depression, stable. 5. H/o atrial tachycardia, stable. Plan of Treatment: Stable for discharge home, close follow up with PCP. Vigilance for future episodes of abdominal pain, nausea or vomiting. Discharge Plan Discharge Plan Patient Disposition: Home Provider Discharge Comment: Stable for discharge home, no recurrent or persistent symptoms of bowel obstruction. Discharge orders & Medications Prescriptions: Continued benzonatate 100 mg capsule 100 mg PO BID-TID PRN (Reason: cough) Qty: 90 3RF albuterol sulfate 90 mcg/actuation HFA aerosol inhaler 2 puff inhalation Q6H PRN (Reason: shortness of breath or wheezing) Qty: 8.5 0RF Rx Instructions: if using the albuterol >2x/week to schedule an appointment to discuss maintenance inhaler metoprolol tartrate 25 mg tablet 50 mg PO BID cyclobenzaprine 5 mg tablet 5 mg PO BEDTIME PRN (Reason: muscle spasm) Qty: 30 0RF esomeprazole magnesium [Nexium] 20 mg Capsule,Delayed Release(Dr/Ec) 20 mg PO BID Follow up/Referrals: Kassidy Ojeda FNP-[facility] [Primary Care Provider] - Diet/Activity/Treatments Diet comment: As tolerated. Soft mechanical and low residue for a few days. Activity: As tolerated. Visit Report/Discharge Packet Instructions: DI for Small Bowel Obstruction Stand Alone Forms: Patient Portal/API, Stroke Signs & Symptoms Discharge Data Primary Care Provider: Kassidy Ojeda Quality VTE Deep Vein Thrombosis/Pulmonary Embolism Present on Admission: No
--- NOTE | 2024-07-10 14:38 | CM.DPC ---
DCP Discharge Home Per Surgeon, pt continued to have bowel movements and NGT was removed and pt was tolerating advancing diet and medically stable to discharge home with outpt f/u and no concerns noted. LEONIE Hernandez
== END 2024-07-10 11:41 | disposition home or self-care (01) | DRG 389 ==
LOC: ED 01:45 → AC 02:13
PROVIDERS: Admitting Provider Internal Medicine; Emergency Provider Emergency Medicine; PCP Nurse Practitioner Family; Referring Provider Emergency Medicine; Visit Provider Internal Medicine
DX: K56.609 Unspecified intestinal obstruction, unspecified as to partial versus complete obstruction (principal); I47.10 Supraventricular tachycardia, unspecified; F32.A Depression, unspecified; J45.40 Moderate persistent asthma, uncomplicated; K21.9 Gastro-esophageal reflux disease without esophagitis
CPT/HCPCS: 36415; 71045; 74018; 74177; 80048; 80053; 81003; 81015; 83690; 85025; 96361; 96365; 96375; 96376; 99232; 99284; 99285; J0134; J2405; J2470; J2765; Q9967

== ENCOUNTER → 2024-07-17 12:29 | Outpatient (CLI) | payer MEDICARE, OTHER, SELFPAY ==
[2024-07-09 04:14] VITALS: BMI 21.9
[2024-07-17 13:09] LABS: Add Manual Diff / Slide Review NO; Basophils Absolute Auto 100 /uL (0-100); Basophils Percent Auto 0.9 % (0-2); Eosinophils Absolute Auto 400 /uL (0-450); Eosinophils Percent Auto 6.3 % (2-4); Hematocrit 37.5 % (36-46); Hemoglobin 12.7 g/dL (12.0-16.0); Lymphocytes Absolute Auto 2100 /uL (1100-4500); Lymphocytes Percent Auto 37.5 % (25-40); Mean Corpuscular HGB Conc 33.8 % (30-36); Mean Corpuscular Hemoglobin 31.3 PG (26-34); Mean Corpuscular Volume 92.6 fL (80-100); Monocytes Absolute Auto 500 /uL (0-900); Monocytes Percent Auto 8.1 % (3-14); Neutrophils Absolute Auto 2600 /uL (1500-7000); Neutrophils Percent Auto 47.2 % (50-75); Platelet Count 310 X10^3/uL (150-400); Red Blood Cell Count 4.05 X10^6/uL (4.0-5.2); Red Cell Distribution Width 13.2 % (11.6-14.8); White Blood Cell Count 5.6 X10^3/uL (4.5-11.0)
[2024-07-17 13:35] LABS: Blood Urea Nitrogen 15 mg/dL (7-17); Carbon Dioxide 27 mmol/L (22-32); Chloride 103 mmol/L (98-107); HEMOLYSIS < 15 (0-50); Sodium 138 mmol/L (137-145)
[2024-07-17 13:36] LABS: BUN Creatinine Ratio 18.5 (6-22); Calcium 10.2 mg/dL (8.4-10.2); Estimated Glomerular Filt Rate > 60 mL/min (>60); Glucose 101 mg/dL (80-110)
== END ==
PROVIDERS: PCP Nurse Practitioner Family; Referring Provider Internal Medicine Cardiovascular Disease; Visit Provider Internal Medicine Cardiovascular Disease
DX: I47.10 Supraventricular tachycardia, unspecified (principal)
CPT/HCPCS: 36415; 80048; 85025

== ENCOUNTER 2024-07-26 22:51 | Inpatient (IN) | payer MEDICARE, OTHER, SELFPAY ==
[2024-07-09 04:14] VITALS: BMI 21.9
--- NOTE | 2024-07-26 22:53 | ED.GENADULT ---
HPI - General Adult General Chief complaint: Abdominal Pain Stated complaint: poss bowel obstruction, vomiting Time Seen by Provider: 07/26/24 22:53 Source: patient, RN notes reviewed and old records reviewed Mode of arrival: Family Vehicle Limitations: no limitations History of Present Illness HPI narrative: 63-year-old female with a past medical history of asthma reflux, has had a prior hysterectomy hysterectomy and ex lap with bowel obstruction hospitalization from 07/09-07/10 2024. Patient was treated conservatively with NG tube and bowel obstruction resolved. Was doing well until earlier today when she started to have increasing epigastric pain abdominal pain and distention and then started having nausea and vomiting later this evening. Patient states she has been having some bowel movements but has not been able to pass gas in the last day. She states this feels very similar to her recent bowel obstruction. No reports of fevers. No chest pain or shortness of breath. No back or flank pain reported. No urinary symptoms reported. Patient did have a cardiac ablation last Saturday she was taking an aspirin as well as metoprolol daily. No history of tobacco, occasional alcohol, no recreational drugs. Patient's primary care provider is Kassidy Ojeda. Related Data Home Medications Medication Instructions Recorded Confirmed esomeprazole magnesium 20 mg 20 mg PO BID 07/09/24 07/15/24 capsule,delayed release (Nexium) calcium carbonate (Tums Ultra) 400 mg PO DAILY 07/13/24 07/15/24 metoprolol succinate 25 mg 25 mg PO DAILY 07/27/24 07/27/24 tablet,extended release 24 hr Previous Rx's Medication Instructions Recorded benzonatate 100 mg capsule 100 mg PO BID-TID PRN cough #90 12/06/23 caps cyclobenzaprine 5 mg tablet 5 mg PO BEDTIME PRN muscle spasm 03/12/24 #30 tabs albuterol sulfate 90 mcg/actuation 2 puff inhalation Q6H PRN 07/01/24 aerosol inhaler shortness of breath or wheezing #8.5 grams Allergies Allergy/AdvReac Type Severity Reaction Status Date / Time No Known Drug Allergies Allergy Unverified 07/15/24 11:33 Review of Systems Review of Systems ROS Unobtainable: All systems reviewed & are unremarkable except as noted in HPI and below Patient History Medical History Muscle spasm of back Allergies (~2003) Depression (~2006) Osteopenia (~2014) Fracture (~2014) Foot pain (~2013) Asthma Chronic cough GERD (gastroesophageal reflux disease) (~2008) Osteoporosis (~2014) Surgical History Anesthesia S/P ORIF (open reduction internal fixation) fracture (~2014) History of ovarian cystectomy (~1985) Family History Father History of heart disease Mother History of heart disease Social History household members: spouse Smoking Status: Never smoker alcohol intake: current Smoking Status: Never smoker alcohol intake frequency: 0-2 drinks per day Substance Use Type: does not use Exam Narrative Exam Narrative: GENERAL: Alert and oriented x three, patient moderate distress HEENT: Head normocephalic, atraumatic, EOMI, pupils reactive, face symmetric, moist mucous membranes NECK: Supple, full range of motion CARDIOVASCULAR: Regular rate and rhythm without murmurs, rubs or gallops. RESPIRATORY: Breath sounds equal bilaterally, no wheezes rales or rhonchi. ABDOMEN: Soft, midepigastric tenderness, patient is distended. Hypoactive bowel sounds all 4 quadrants. No guarding or rebound, rigidity, no mass, patient has active emesis in the department. : No CVA tenderness EXTREMITIES: Normal range of motion, no clubbing or edema. Neurovascularly intact NEUROLOGICAL: Cranial nerves II through XII grossly intact. Moving all extremities SKIN: Warm, dry, no petechiae, no rashes or lesions. Initial Vital Signs Initial Vital Signs: Vital Signs Temperature 97.7 F 07/26/24 22:58 Pulse Rate 133 H 07/26/24 22:58 Respiratory Rate 25 H 07/26/24 22:58 Blood Pressure 173/85 H 07/26/24 22:58 Pulse Oximetry 99 07/26/24 22:58 Oxygen Delivery Method Room Air 07/26/24 22:58 Course Orders Ordered: ED Orders 07/26/24 22:57 CT abdomen pelvis w con Stat EKG-12 Lead Stat 07/26/24 23:02 Complete Blood Count AUTO DIFF Stat Comprehensive Metabolic Panel Stat Lipase Stat Discontinued Medications Sodium Chloride (Normal Saline 0.9%) 1,000 mls @ 1,000 mls/hr IV BOLUS ONE Stop: 07/26/24 23:56 Last Infusion: 07/27/24 00:26 Dose: Infused Lidocaine HCl (Lidocaine 2% (Glydo) 6 Ml Gel) 6 ml TOP NOW ONE Stop: 07/27/24 00:02 Last Admin: 07/27/24 00:22 Dose: 6 ml Morphine Sulfate (Morphine 4 Mg/Ml Inj) 4 mg IV NOW ONE Stop: 07/26/24 23:00 Last Admin: 07/26/24 23:04 Dose: 4 mg Ondansetron HCl (Ondansetron 4 Mg/2 Ml Inj) 4 mg IV NOW ONE Stop: 07/26/24 22:58 Last Admin: 07/26/24 23:04 Dose: 4 mg Ondansetron HCl (Ondansetron 4 Mg/2 Ml Inj) 4 mg IV NOW ONE Stop: 07/27/24 00:24 Vital Signs Vital signs: Vital Signs - 8 hr 07/26/24 22:58 Temperature 97.7 F Pulse Rate 133 H Respiratory Rate 25 H Blood Pressure 173/85 H Pulse Oximetry 99 Oxygen Delivery Method Room Air Medical Decision Making Lab Data 07/26/24 23:02 07/26/24 23:02 Labs: Lab Results 07/26/24 Range/Units 23:02 WBC 12.1 H (4.5-11.0) X10^3/uL RBC 4.54 (4.0-5.2) X10^6/uL Hgb 14.2 (12.0-16.0) g/dL Hct 42.1 (36-46) % MCV 92.6 (80-100) fL MCH 31.2 (26-34) PG MCHC 33.7 (30-36) % RDW 13.1 (11.6-14.8) % Plt Count 328 (150-400) X10^3/uL Neut % (Auto) 59.9 (50-75) % Lymph % (Auto) 29.5 (25-40) % Chase % (Auto) 7.3 (3-14) % Eos % (Auto) 2.7 (2-4) % Baso % (Auto) 0.6 (0-2) % Neut # (Auto) 7200 H (0856-6711) /uL Lymph # (Auto) 3600 (6374-8684) /uL Chase # (Auto) 900 (0-900) /uL Eos # (Auto) 300 (0-450) /uL Baso # (Auto) 100 (0-100) /uL Sodium 135 L (137-145) mmol/L Potassium 3.5 D (3.4-5.1) mmol/L Chloride 106 (98-107) mmol/L Carbon Dioxide 15 L (22-32) mmol/L BUN 19 H (7-17) mg/dL Creatinine 0.85 (0.52-1.04) mg/dL Estimated GFR > 60 (>60) mL/min BUN/Creatinine Ratio 22.4 H (6-22) Glucose 146 H (80-110) mg/dL Calcium 10.6 H (8.4-10.2) mg/dL Total Bilirubin 0.7 (0.2-1.3) mg/dL AST 41 H (14-36) IU/L ALT 22 (<35) IU/L Alkaline Phosphatase 87 (38-126) U/L Total Protein 8.4 H (6.3-8.2) g/dL Albumin 5.0 (3.5-5.0) g/dL Globulin 3.4 (1.7-4.1) g/dL Albumin/Globulin Ratio 1.5 (1.0-2.8) Lipase 149 (23-300) U/L Imaging Data CT scan - abdomen/pelvis: Radiologist's Impression: [address] [address] [address] Scan Report Signed Patient: Evonne Sánchez MR#: [id number] : 1960 Acct:[id number] Age/Sex: 63 / F Date of Service: 07/26/24 Loc: ED Accession Number: [id number] Procedure: CT abdomen pelvis w con Ordering Provider: Madeleine Christy D.O. PROCEDURE: CT ABDOMEN PELVIS W CON INDICATIONS: vomiting, epigastric pain, recent SBO, similar symptoms TECHNIQUE: After the administration of intravenous contrast, axial sections acquired from the lung bases to the pubic symphysis. Coronal and sagittal reformats were performed. For radiation dose reduction, the following was used: automated exposure control, adjustment of mA and/or kV according to patient size. COMPARISON: [facility], CT, CT ABDOMEN PELVIS W CON, 07/09/2024, 1:02. FINDINGS: Image quality: Diagnostic. Lower Chest: No significant findings. ABDOMEN: Liver: No solid mass. Steatosis. Gallbladder: No radiopaque gallstones or wall thickening. Biliary ducts: No biliary dilation. Pancreas: No ductal dilation. Spleen: Size is within normal limits. Adrenal Glands: No adrenal nodules. Kidneys and Ureters: No hydronephrosis. No solid mass. No complex renal cystic lesion which requires follow up. Stomach and Bowel: Dilated fluid-filled loops of small bowel greatest dimension measuring approximately 3.8 cm. Transition point is not clearly identified although suspected to be in the mid lower quadrant series 4, image 32, series image 101. Peritoneum: No abnormal intraperitoneal fluid. No free air. Ventral Wall: No significant ventral hernia. Abdominal Nodes: No retroperitoneal or mesenteric adenopathy by size criteria. Vessels: Aorta and inferior vena cava are normal in size. PELVIS: Pelvic Organs: Unremarkable. Bladder: No bladder wall thickening, accounting for underdistention. Pelvic Nodes: No enlarged lymph nodes. Miscellaneous: No inguinal hernias are seen. Bones: No aggressive osseous abnormality. IMPRESSION: Dilated fluid-filled loops of small bowel most consistent with partial small bowel obstruction. Dictated by: Elenita Watts M.D. on 07/26/2024 at 23:52 Approved by: Elenita Watts M.D. on 07/26/2024 at 23:56 ECG Data Attestation: I personally reviewed and interpreted this ECG as follows: Prior ECG tracings: not available for review Interpretation: Sinus rhythm rate of 97 ID 142 QRS is 72 QTC of 477, no acute ST elevation. No priors for comparison. MDM Narrative Medical decision making narrative: 63-year-old female presents with symptoms and concerns for bowel obstruction patient had similar symptoms on 07/09/2024 had observation overnight was treated conservatively with an NG tube had resolution without any surgical intervention. She states this is very similar symptoms presents with active emesis. Patient had labs, EKG and CT abdomen pelvis suspect recurrent bowel obstruction based on patient's current symptoms. Patient's initial heart rate was 30 but after not vomiting improved with medication patient's shortly dropped back down into the 90s. Labs has a white count of 12.1 hemoglobin of 14 platelets of 328, chemistry shows sodium 135 potassium 3.5 chloride of 106 CO2 of 15 with a BUN 19 creatinine 0.85 glucose is 146 calcium slightly elevated at 10.6. Bilirubin is normal AST is 41 ALT is 22 alk-phos is 87 total protein is elevated at 8.4 lipase is normal at 149 EKG shows sinus rhythm with a rate of [address] abdomen and pelvis dilated fluid-filled bowel loops consistent with a partial small-bowel obstruction. Patient received fluids, Zofran and pain medication on recheck she is feeling much improved. Vitals signs have normalized. Awaiting Ct report. Spoke with Dr. Peña, general surgery happy to see patient would recommend NG tube. Reviewed labs, CT findings and patient's last hospitalization. Spoke with Dr. Laboy who accepts patient for inpatient. NG tube placed by nursing 250mL out immediately. Post CXR NGT is in appropriate position Discharge Plan Departure Patient Disposition: Admitted As Inpatient Clinical Impression: Partial bowel obstruction Admit Date/Time: 07/27/24 00:14 Admit Provider: Jersey Laboy
--- NOTE | 2024-07-26 22:57 | DI.CT.S_ITS ---
PROCEDURE: CT ABDOMEN PELVIS W CON INDICATIONS: vomiting, epigastric pain, recent SBO, similar symptoms TECHNIQUE: After the administration of intravenous contrast, axial sections acquired from the lung bases to the pubic symphysis. Coronal and sagittal reformats were performed. For radiation dose reduction, the following was used: automated exposure control, adjustment of mA and/or kV according to patient size. COMPARISON: [facility], CT, CT ABDOMEN PELVIS W CON, 07/09/2024, 1:02. FINDINGS: Image quality: Diagnostic. Lower Chest: No significant findings. ABDOMEN: Liver: No solid mass. Steatosis. Gallbladder: No radiopaque gallstones or wall thickening. Biliary ducts: No biliary dilation. Pancreas: No ductal dilation. Spleen: Size is within normal limits. Adrenal Glands: No adrenal nodules. Kidneys and Ureters: No hydronephrosis. No solid mass. No complex renal cystic lesion which requires follow up. Stomach and Bowel: Dilated fluid-filled loops of small bowel greatest dimension measuring approximately 3.8 cm. Transition point is not clearly identified although suspected to be in the mid lower quadrant series 4, image 32, series image 101. Peritoneum: No abnormal intraperitoneal fluid. No free air. Ventral Wall: No significant ventral hernia. Abdominal Nodes: No retroperitoneal or mesenteric adenopathy by size criteria. Vessels: Aorta and inferior vena cava are normal in size. PELVIS: Pelvic Organs: Unremarkable. Bladder: No bladder wall thickening, accounting for underdistention. Pelvic Nodes: No enlarged lymph nodes. Miscellaneous: No inguinal hernias are seen. Bones: No aggressive osseous abnormality. IMPRESSION: Dilated fluid-filled loops of small bowel most consistent with partial small bowel obstruction. Dictated by: Elenita Watts M.D. on 07/26/2024 at 23:52 Approved by: Elenita Watts M.D. on 07/26/2024 at 23:56
[2024-07-26 22:58] VITALS: BP 173/85; PULSE 133; RESP 25; TEMP 36.5; O2SAT 99
[2024-07-26 23:01] VITALS: PULSE 128; O2SAT 99
[2024-07-26] MEDS: SODIUM CHLORIDE 0.9% 1,000 ML 1000 ML IV (23:04)
[2024-07-26] MEDS: MORPHINE 4 MG/ML INJ IV (23:04)
[2024-07-26] MEDS: ONDANSETRON 4 MG/2 ML INJ IV (23:04)
--- NOTE | 2024-07-26 23:07 | EKG_ITS ---
[address] [address] Test Date: 2024-07-26 Pat Name: Evonne Sánchez Department: [facility] Room: Gender: Female Shoe Shanker: EMILY KIRAN : 1960 Requested By: Order Number: [id number] Reading MD: Daren Tam Measurements Intervals Atkins Rate: 97 P: 72 OR: 142 QRS: 51 QRSD: 72 T: 69 QT: 376 QTc: 477 Interpretive Statements Normal sinus rhythm Anteroseptal infarct , age undetermined Electronically Signed On 07-27-2024 7:55:43 PST by Daren Tam
[2024-07-26 23:10] LABS: Add Manual Diff / Slide Review NO; Basophils Absolute Auto 100 /uL (0-100); Basophils Percent Auto 0.6 % (0-2); Eosinophils Absolute Auto 300 /uL (0-450); Eosinophils Percent Auto 2.7 % (2-4); Hematocrit 42.1 % (36-46); Hemoglobin 14.2 g/dL (12.0-16.0); Lymphocytes Absolute Auto 3600 /uL (1100-4500); Lymphocytes Percent Auto 29.5 % (25-40); Mean Corpuscular HGB Conc 33.7 % (30-36); Mean Corpuscular Hemoglobin 31.2 PG (26-34); Mean Corpuscular Volume 92.6 fL (80-100); Monocytes Absolute Auto 900 /uL (0-900); Monocytes Percent Auto 7.3 % (3-14); Neutrophils Absolute Auto 7200 /uL (1500-7000); Neutrophils Percent Auto 59.9 % (50-75); Platelet Count 328 X10^3/uL (150-400); Red Blood Cell Count 4.54 X10^6/uL (4.0-5.2); Red Cell Distribution Width 13.1 % (11.6-14.8); White Blood Cell Count 12.1 X10^3/uL (4.5-11.0)
[2024-07-26 23:22] LABS: Alanine Aminotransferase 22 IU/L (<35); Albumin Globulin Ratio 1.5 (1.0-2.8); Alkaline Phosphatase 87 U/L (38-126); Aspartate Aminotransferase 41 IU/L (14-36); BUN Creatinine Ratio 22.4 (6-22); Bilirubin Total 0.7 mg/dL (0.2-1.3); Blood Urea Nitrogen 19 mg/dL (7-17); Calcium 10.6 mg/dL (8.4-10.2); Carbon Dioxide 15 mmol/L (22-32); Chloride 106 mmol/L (98-107); Estimated Glomerular Filt Rate > 60 mL/min (>60); Globulin 3.4 g/dL (1.7-4.1); Glucose 146 mg/dL (80-110); HEMOLYSIS < 15 (0-50); Lipase 149 U/L (23-300); Potassium 3.5 mmol/L (3.4-5.1); Sodium 135 mmol/L (137-145); Total Protein 8.4 g/dL (6.3-8.2)
[2024-07-26 23:30] VITALS: PULSE 79; RESP 14; O2SAT 98
[2024-07-26 23:58] VITALS: BP 146/65; PULSE 96; RESP 15; O2SAT 97
[2024-07-27] VITALS (15 sets, daily range): BP systolic 130–174; BP diastolic 65–103; PULSE 89–125; RESP 14–20; TEMP 35.6–36.6; O2SAT 94–100; BMI 21.4
--- NOTE | 2024-07-27 00:19 | DI.RAD.S_ITS ---
PROCEDURE: XR CHEST 1V INDICATIONS: ng tube placement TECHNIQUE: One view of the chest was acquired. COMPARISON: [facility], CR, XR CHEST 1V, 07/09/2024, 1:55. FINDINGS: Surgical changes and devices: Nasogastric tube is present with distal tip projecting below the left hemidiaphragm. Lungs and pleura: Lungs are clear. No pleural effusions or pneumothorax. Mediastinum: Mediastinal contours appear normal. Heart size is normal. Bones and chest wall: No suspicious bony lesions. Overlying soft tissues appear unremarkable. IMPRESSION: No acute pulmonary process. Nasogastric tube in appropriate location. Dictated by: Elenita Watts M.D. on 07/27/2024 at 0:31 Approved by: Elenita Watts M.D. on 07/27/2024 at 0:31
[2024-07-27] MEDS: LIDOCAINE 2% (GLYDO) 6 ML GEL TOP (00:22)
[2024-07-27] MEDS: ONDANSETRON 4 MG/2 ML INJ IV ×3 (00:27→10:30)
[2024-07-27] MEDS: MORPHINE 4 MG/ML INJ IV (00:33)
[2024-07-27] MEDS: SODIUM CHLORIDE 0.9% 1,000 ML 100 ML IV ×2 (01:10→09:59)
[2024-07-27] MEDS: PROMETHAZINE 12.5 MG SUPP PR (01:53)
[2024-07-27] MEDS: HYDROMORPHONE 0.5 MG INJ IV ×2 (02:56→07:53)
--- NOTE | 2024-07-27 03:14 | PM.HP.1 ---
History of Present Illness History of Present Illness Chief complaint: poss bowel obstruction, vomiting Narrative: 63-year-old female with path medical history of GERD, asthma, hysterectomy, ex lap, and with recent small bowel obstruction discharge on July 10, 2024 presents again with abdominal pain/distension and nausea/vomiting. Per the patient's report the patient was doing fine after her discharge. However this evening, the patient started to have increasing abdominal distention, abdominal epigastric pain and nausea and vomiting. Patient states she has not been able to pass gas the whole day. The patient was concerned that the symptoms suggest that she has another recurrent SBO. Otherwise the patient denies any fever, chills, chest pain, shortness of breath or syncope. In our emergency room, the patient was hemodynamically stable stable though slightly hypertensive. WBC was 12 and bicarb was 15 but otherwise labs were benign. CT scan of the abdomen shows partial small bowel obstruction. General surgeon was called who recommended again to place the NGT with conservative management. [facility] Medical History Muscle spasm of back Allergies (~2003) Depression (~2006) Osteopenia (~2014) Fracture (~2014) Foot pain (~2013) Asthma Chronic cough GERD (gastroesophageal reflux disease) (~2008) Osteoporosis (~2014) Surgical History Anesthesia S/P ORIF (open reduction internal fixation) fracture (~2014) History of ovarian cystectomy (~1985) Family History Father History of heart disease Mother History of heart disease Social History household members: spouse Smoking Status: Never smoker alcohol intake: current Meds Home Medications and Allergies Home Medications Medication Instructions Recorded Confirmed Type benzonatate 100 mg capsule 100 mg PO BID-TID PRN cough #90 12/06/23 07/27/24 Rx caps cyclobenzaprine 5 mg tablet 5 mg PO BEDTIME PRN muscle spasm 03/12/24 07/27/24 Rx #30 tabs albuterol sulfate 90 mcg/actuation 2 puff inhalation Q6H PRN 07/01/24 07/27/24 Rx aerosol inhaler shortness of breath or wheezing #8.5 grams esomeprazole magnesium 20 mg 20 mg PO BID 07/09/24 07/27/24 History capsule,delayed release (Nexium) calcium carbonate (Tums Ultra) 400 mg PO DAILY PRN Heartburn 07/13/24 07/27/24 History metoprolol succinate 25 mg 25 mg PO DAILY 07/27/24 07/27/24 History tablet,extended release 24 hr Allergies Allergy/AdvReac Type Severity Reaction Status Date / Time No Known Drug Allergies Allergy Unverified 07/15/24 11:33 Review of Systems Review of Systems ROS: Yes All systems reviewed with the patient and are negative except as otherwise documented Exam Vital Signs (past 8 hours): - 07/26/24 22:58 07/26/24 23:01 07/26/24 23:30 Temperature 97.7 F Pulse Rate 133 H 128 H 79 Respiratory Rate 25 H 14 Blood Pressure 173/85 H Pulse Oximetry 99 99 98 Oxygen Delivery Method Room Air Oxygen Flow Rate 07/26/24 23:58 07/26/24 23:58 07/27/24 00:00 Temperature Pulse Rate 96 H Respiratory Rate 15 Blood Pressure 146/65 H 142/66 H Pulse Oximetry 97 Oxygen Delivery Method Oxygen Flow Rate 07/27/24 00:00 07/27/24 00:30 07/27/24 00:30 Temperature Pulse Rate 92 H 98 H Respiratory Rate 14 19 Blood Pressure 139/85 Pulse Oximetry 94 100 Oxygen Delivery Method Oxygen Flow Rate 07/27/24 00:40 07/27/24 01:15 Temperature 96.0 F L Pulse Rate 89 Respiratory Rate 20 Blood Pressure 153/93 H Pulse Oximetry 97 Oxygen Delivery Method Room Air Oxygen Flow Rate 0 Oxygen Delivery Method Room Air Oxygen Flow Rate 0 Narrative Exam Narrative: GENERAL: The patient is not in any acute distressed. Awake and alert.NGT in placed HEENT: Nonicteric sclerae, PERRLA, EOMI. Oropharynx clear. Moist mucous membranes. Conjunctivae appear well perfused. HEART: Regular rate and rhythm without murmurs. No lower extremities edema. LUNGS: Clear to auscultation bilaterally. No wheezing, crackles or rhonchi ABDOMEN: Soft, slightly distended positive bowel sounds, nontender. SKIN: No rash, no excessive bruising, petechiae, or purpura. NEUROLOGIC: AxO x 3. Cranial nerves II-XII intact without motor/sensory deficit. Objective Labs 07/26/24 23:02 07/26/24 23:02 Labs: Laboratory Results - last 24 hr 07/26/24 23:02 WBC 12.1 H RBC 4.54 Hgb 14.2 Hct 42.1 MCV 92.6 MCH 31.2 MCHC 33.7 RDW 13.1 Plt Count 328 Neut % (Auto) 59.9 Lymph % (Auto) 29.5 [place] % (Auto) 7.3 Eos % (Auto) 2.7 Baso % (Auto) 0.6 Neut # (Auto) 7200 H Lymph # (Auto) 3600 [place] # (Auto) 900 Eos # (Auto) 300 Baso # (Auto) 100 Sodium 135 L Potassium 3.5 D Chloride 106 Carbon Dioxide 15 L BUN 19 H Creatinine 0.85 Estimated GFR > 60 BUN/Creatinine Ratio 22.4 H Glucose 146 H Calcium 10.6 H Total Bilirubin 0.7 AST 41 H ALT 22 Alkaline Phosphatase 87 Total Protein 8.4 H Albumin 5.0 Globulin 3.4 Albumin/Globulin Ratio 1.5 Lipase 149 Assessment & Plan Assessment & Plan narrative: Partial recurring small bowel obstruction. Admit the patient to medical inpatient. NPO. IV fluid. Continue NG tube suctioning. PRN pain medications. PRN IV Anti-emetics. General surgery consulted and appreciate further input and management. Dehydration. IV fluid. GERD resume home PPI when able to take PO. Asthma no sign of exacerbation. PRN inhalers. DVT prophylaxis SCDs and heparin Q. Supervisor [facility] Department status full code. Disposition likely in 2 to 3 days. Time-Based Coding :: [TOTAL MINUTES] spent with patient and on the chart (including review of chart, obtaining history, exam, reviewing outside data, placing orders, documenting exam and treatment plan, and counseling patient) on [DATE].
[2024-07-27] MEDS: METOCLOPRAMIDE 10 MG/2 ML INJ IV ×2 (03:37→09:00)
[2024-07-27 04:15] LABS: Appearance Urine UA CLEAR; Bilirubin Urine UA NEGATIVE (NEGATIVE); Color Urine UA YELLOW; Glucose Urine UA NEGATIVE (Negative); Ketones Urine UA 1+ (NEGATIVE); Leukocyte Esterase Urine UA NEGATIVE (NEGATIVE); Nitrite Urine UA NEGATIVE (Negative); Occult Blood Urine UA 1+ (Negative); Protein Urine UA NEGATIVE (Negative); Specific Gravity Urine UA 1.015 (1.000-1.035); Urobilinogen Urine UA 0.2 E.U./dL (0.2)
[2024-07-27 04:24] LABS: Bacteria Urine Few (2-10); Culture Indicated Urine Cult Not Indicated; Hyaline Casts Urine 0-1/LPF; RBC Urine 1-5/HPF (0-5/HPF); Squamous Epithelial Cell Urine 1-5 /HPF (0-5/HPF); Urine Volume 10mL (spun); WBC Urine None Seen (0-5/HPF)
[2024-07-27 05:20] LABS: Add Manual Diff / Slide Review NO; Basophils Absolute Auto 0 /uL (0-100); Basophils Percent Auto 0.1 % (0-2); Eosinophils Absolute Auto 0 /uL (0-450); Eosinophils Percent Auto 0.6 % (2-4); Hematocrit 44.7 % (36-46); Hemoglobin 14.9 g/dL (12.0-16.0); Lymphocytes Absolute Auto 300 /uL (1100-4500); Mean Corpuscular HGB Conc 33.2 % (30-36); Mean Corpuscular Hemoglobin 31.1 PG (26-34); Mean Corpuscular Volume 93.7 fL (80-100); Monocytes Absolute Auto 500 /uL (0-900); Neutrophils Absolute Auto 5200 /uL (1500-7000); Neutrophils Percent Auto 86.3 % (50-75); Platelet Count 235 X10^3/uL (150-400); Red Blood Cell Count 4.77 X10^6/uL (4.0-5.2); Red Cell Distribution Width 13.2 % (11.6-14.8)
[2024-07-27 05:27] LABS: Alanine Aminotransferase 18 IU/L (<35); Albumin 4.3 g/dL (3.5-5.0); Albumin Globulin Ratio 1.4 (1.0-2.8); Alkaline Phosphatase 75 U/L (38-126); Aspartate Aminotransferase 34 IU/L (14-36); BUN Creatinine Ratio 28.8 (6-22); Bilirubin Total 0.7 mg/dL (0.2-1.3); Blood Urea Nitrogen 19 mg/dL (7-17); Calcium 9.2 mg/dL (8.4-10.2); Carbon Dioxide 22 mmol/L (22-32); Chloride 107 mmol/L (98-107); Estimated Glomerular Filt Rate > 60 mL/min (>60); Glucose 177 mg/dL (80-110); HEMOLYSIS < 15 (0-50); Potassium 3.3 mmol/L (3.4-5.1); Sodium 136 mmol/L (137-145); Total Protein 7.3 g/dL (6.3-8.2)
[2024-07-27] MEDS: HEPARIN 5,000 UNIT/ML VIAL 5000 UNIT SUBCUT (08:03)
--- NOTE | 2024-07-27 08:34 | P.HP_ITS ---
History of Present Illness History of Present Illness Date Patient Seen: 07/27/24 Chief complaint: poss bowel obstruction, vomiting Narrative: From night doctor: 63-year-old female with path medical history of GERD, asthma, hysterectomy, ex lap, and with recent small bowel obstruction discharge on July 10, 2024 presents again with abdominal pain/distension and nausea/vomiting. Per the patient's report the patient was doing fine after her discharge. However this evening, the patient started to have increasing abdominal distention, abdominal epigastric pain and nausea and vomiting. Patient states she has not been able to pass gas the whole day. The patient was concerned that the symptoms suggest that she has another recurrent SBO. Otherwise the patient denies any fever, chills, chest pain, shortness of breath or syncope. In our emergency room, the patient was hemodynamically stable stable though slightly hypertensive. WBC was 12 and bicarb was 15 but otherwise labs were benign. CT scan of the abdomen shows partial small bowel obstruction. General surgeon was called who recommended again to place the NGT with conservative management. Additional information: This is her 3rd episode in the last month or so. She was not improving at this time. As of 08 01 she was still vomiting. General surgery has placed her on the OR schedule for a laparoscopy. [facility] Medical History Muscle spasm of back Allergies (~2003) Depression (~2006) Osteopenia (~2014) Fracture (~2014) Foot pain (~2013) Asthma Chronic cough GERD (gastroesophageal reflux disease) (~2008) Osteoporosis (~2014) Surgical History Anesthesia S/P ORIF (open reduction internal fixation) fracture (~2014) History of ovarian cystectomy (~1985) Family History Father History of heart disease Mother History of heart disease Social History household members: spouse Smoking Status: Never smoker alcohol intake: current Meds Home Medications and Allergies Home Medications Medication Instructions Recorded Confirmed Type benzonatate 100 mg capsule 100 mg PO BID-TID PRN cough #90 12/06/23 07/27/24 Rx caps cyclobenzaprine 5 mg tablet 5 mg PO BEDTIME PRN muscle spasm 03/12/24 07/27/24 Rx #30 tabs albuterol sulfate 90 mcg/actuation 2 puff inhalation Q6H PRN 07/01/24 07/27/24 Rx aerosol inhaler shortness of breath or wheezing #8.5 grams esomeprazole magnesium 20 mg 20 mg PO BID 07/09/24 07/27/24 History capsule,delayed release (Nexium) calcium carbonate (Tums Ultra) 400 mg PO DAILY PRN Heartburn 07/13/24 07/27/24 History metoprolol succinate 25 mg 25 mg PO DAILY 07/27/24 07/27/24 History tablet,extended release 24 hr Allergies Allergy/AdvReac Type Severity Reaction Status Date / Time No Known Drug Allergies Allergy Unverified 07/15/24 11:33 Review of Systems Review of Systems Narrative: All else reviewed and otherwise unremarkable except as noted in the history and physical. Exam Vital Signs (past 8 hours): - 07/27/24 00:40 07/27/24 01:15 07/27/24 04:00 Temperature 96.0 F L 96.4 F L Pulse Rate 89 111 H Respiratory Rate 20 17 Blood Pressure 153/93 H 148/88 H Pulse Oximetry 97 94 Oxygen Delivery Method Room Air Oxygen Flow Rate 0 0 07/27/24 07:50 Temperature 96.2 F L Pulse Rate 125 H Respiratory Rate 19 Blood Pressure 174/103 H Pulse Oximetry 96 Oxygen Delivery Method Oxygen Flow Rate Oxygen Delivery Method Room Air Oxygen Flow Rate 0 Narrative Exam Narrative: NAD, alert and oriented, soft speech, intermittently vomiting and looks very uncomfortable. Normocephalic skull, EOMI, anicteric sclera, symmetric pupils. Oropharynx unremarkable, no droop. Neck supple, midline trachea, no adenopathy. Lungs clear, normal rate and effort. Heart regular, no murmur gallop or rub. Abdomen is soft, non distended and diffusely tender. Extremities are free of edema. Skin is free of rash or lesions. Joints are not swollen or deformed. Judgment appears to be normal. Objective ECG Impression: Normal sinus rhythm Anteroseptal infarct , age undetermined Imaging CT scan - abdomen: Radiologist's impression: Dilated fluid-filled loops of small bowel most consistent with partial small bowel obstruction. Labs 07/27/24 04:30 07/27/24 04:30 Labs: Laboratory Results - last 24 hr 07/26/24 07/27/24 07/27/24 23:02 04:05 04:30 WBC 12.1 H 6.0 D RBC 4.54 4.77 Hgb 14.2 14.9 Hct 42.1 44.7 MCV 92.6 93.7 MCH 31.2 31.1 MCHC 33.7 33.2 RDW 13.1 13.2 Plt Count 328 235 Neut % (Auto) 59.9 86.3 H D Lymph % (Auto) 29.5 5.0 L D [place] % (Auto) 7.3 8.0 Eos % (Auto) 2.7 0.6 L Baso % (Auto) 0.6 0.1 Neut # (Auto) 7200 H 5200 Lymph # (Auto) 3600 300 L [place] # (Auto) 900 500 Eos # (Auto) 300 0 Baso # (Auto) 100 0 Sodium 135 L 136 L Potassium 3.5 D 3.3 L Chloride 106 107 Carbon Dioxide 15 L 22 BUN 19 H 19 H Creatinine 0.85 0.66 Estimated GFR > 60 > 60 BUN/Creatinine Ratio 22.4 H 28.8 H Glucose 146 H 177 H Calcium 10.6 H 9.2 Total Bilirubin 0.7 0.7 AST 41 H 34 ALT 22 18 Alkaline Phosphatase 87 75 Total Protein 8.4 H 7.3 Albumin 5.0 4.3 Globulin 3.4 3.0 Albumin/Globulin Ratio 1.5 1.4 Lipase 149 Urine Color Yellow Urine Appearance Clear Urine pH 5.0 Ur Specific [place] 1.015 Urine Protein Negative Urine Glucose (UA) Negative Urine Ketones 1+ H Urine Occult Blood 1+ H Urine Nitrate Negative Urine Bilirubin Negative Urine Urobilinogen 0.2 Ur Leukocyte Esterase Negative Urine RBC 1-5/hpf Urine WBC None seen Ur Squamous Epith Cells 1-5 /hpf Urine Bacteria Few (2-10) H Hyaline Casts 0-1/lpf Ur Culture Indicated? Cult not indicated Vol Urine Centrifuged 10ml (spun) Assessment & Plan Assessment & Plan narrative: 1. Partial recurring small bowel obstruction. Admit the patient to medical inpatient. Present on admission and active. 2. Dehydration. Present on admission and improved. 3. GERD, present on admission and stable. 4. Asthma, present on admission and stable. Plan: -NPO, IV fluids -laparoscopy later today per surgery for persistent bowel obstruction. DVT prophylaxis SCDs and heparin Q. Code status: full code. 2 MN of hospital care is anticipated, the supports inpatient status. ELY: 07/29. Time-Based Coding :: 40 min spent with patient and on the chart (including review of chart, obtaining history, exam, reviewing outside data, placing orders, documenting exam and treatment plan, and counseling patient) on 07/27. Quality MIPS - Admit I confirm the patient?s Advance Care Plan is present, Code status is documented, Surrogate decision maker is in patient?s record [If Yes, STOP here]: Yes The patient?s Advance Care plan is not present because I confirmed today that the patient does not wish or was not able to name a surrogate decision maker or provide an Advance Care Plan.: Yes MIPS - Meds 'Current medications' to include all prescriptions, pyyo-sck-dvdefmo products, herbals, cannabis/cannabidiol products, and vitamin/mineral/dietary (nutritional) supplements. I have utilized all available resources to obtain, update, or review the patient?s current medications. [If Yes, STOP here]: Yes
[2024-07-27] MEDS: POTASSIUM CHLORIDE IN WATER 10 MEQ/100 ML PIGGYBACK 100 MEQ IV ×4 (09:59→15:34)
--- NOTE | 2024-07-27 12:04 | P.CONS_ITS ---
History of Present Illness Consult details Date Patient Seen: 07/27/24 Time Patient Seen: 11:00 Chief complaint: poss bowel obstruction, vomiting Reason for consult: Small bowel obstruction, recurrent Requesting provider: Jersey Laboy Narrative: This is a 63-year-old white female with a past surgical history of a laparoscopic ovarian cyst excision who had symptoms of a bowel obstruction 2 weeks ago. She returned to the ER again with a recurrent bowel obstruction. She has a nasogastric tube placed, is unable to tolerate any contrast for a Gastrografin challenge. She is uncomfortable and is willing to have surgical intervention due to failure of conservative management. Meds Home Medications and Allergies Home Medications Medication Instructions Recorded Confirmed Type benzonatate 100 mg capsule 100 mg PO BID-TID PRN cough #90 12/06/23 07/27/24 Rx caps cyclobenzaprine 5 mg tablet 5 mg PO BEDTIME PRN muscle spasm 03/12/24 07/27/24 Rx #30 tabs albuterol sulfate 90 mcg/actuation 2 puff inhalation Q6H PRN 07/01/24 07/27/24 Rx aerosol inhaler shortness of breath or wheezing #8.5 grams esomeprazole magnesium 20 mg 20 mg PO BID 07/09/24 07/27/24 History capsule,delayed release (Nexium) calcium carbonate (Tums Ultra) 400 mg PO DAILY PRN Heartburn 07/13/24 07/27/24 History metoprolol succinate 25 mg 25 mg PO DAILY 07/27/24 07/27/24 History tablet,extended release 24 hr Allergies Allergy/AdvReac Type Severity Reaction Status Date / Time No Known Drug Allergies Allergy Unverified 07/15/24 11:33 Review of Systems Review of Systems ROS: Yes All systems reviewed with the patient and are negative except as otherwise documented Constitutional Constitutional: Reports anorexia, Denies chills, Denies fever(s) and Reports poor appetite Eyes Eyes: Reports system reviewed and no additional complaints, except as documented ENT Ears, Nose, Mouth, and Throat: Yes system reviewed and no additional complaints, except as documented Cardiovascular Cardiovascular: Reports system reviewed and no additional complaints, except as documented Comments: Patient had ablation of an SVT at [place] last week. States it was successful. Respiratory Respiratory: Reports system reviewed and no additional complaints, except as documented Gastrointestinal Gastrointestinal: Reports abdominal pain, Reports bloating, Reports constipation, Reports nausea and Reports vomiting Genitourinary Genitourinary: Reports system reviewed and no additional complaints, except as documented Musculoskeletal Musculoskeletal: Reports system reviewed and no additional complaints, except as documented Integumentary/Breasts Skin/Breast: Reports system reviewed and no additional complaints, except as documented Neurologic Neurologic: Reports system reviewed and no additional complaints, except as documented Psychiatric Psychiatric: Reports system reviewed and no additional complaints, except as documented Endocrine Endocrine: Reports system reviewed and no additional complaints, except as documented Hematologic/Lymphatic Hematologic/Lymphatic: Reports system reviewed and no additional complaints, except as documented Allergic/Immunologic Allergic/Immunologic: Reports system reviewed and no additional complaints, except as documented Exam Vital Signs (past 8 hours): - 07/27/24 07:50 Temperature 96.2 F L Pulse Rate 125 H Respiratory Rate 19 Blood Pressure 174/103 H Pulse Oximetry 96 Oxygen Delivery Method Room Air Oxygen Flow Rate 0 Narrative Exam Narrative: Gen: NAD, sitting uncomfortably in bed, retching during our conversation HEENT: Sclera are anicteric, head is normocephalic and atraumatic, trachea is midline. CV: RRR, no JVD Resp: clear to auscultation bilaterally, equal chest wall movement bilaterally Abd: mildly tender, distended Ext: no edema, full range of motion Neuro: Cranial nerves II-XII grossly intact, no focal deficits Skin: No erythema or ecchymosis Objective Imaging CT scan - abdomen: My impression: CT scan independently reviewed by me shows probable transition point in the mid pelvis. Labs 07/27/24 04:30 07/27/24 04:30 Labs: Laboratory Results - last 24 hr 07/26/24 07/27/24 07/27/24 23:02 04:05 04:30 WBC 12.1 H 6.0 D RBC 4.54 4.77 Hgb 14.2 14.9 Hct 42.1 44.7 MCV 92.6 93.7 MCH 31.2 31.1 MCHC 33.7 33.2 RDW 13.1 13.2 Plt Count 328 235 Neut % (Auto) 59.9 86.3 H D Lymph % (Auto) 29.5 5.0 L D [place] % (Auto) 7.3 8.0 Eos % (Auto) 2.7 0.6 L Baso % (Auto) 0.6 0.1 Neut # (Auto) 7200 H 5200 Lymph # (Auto) 3600 300 L [place] # (Auto) 900 500 Eos # (Auto) 300 0 Baso # (Auto) 100 0 Sodium 135 L 136 L Potassium 3.5 D 3.3 L Chloride 106 107 Carbon Dioxide 15 L 22 BUN 19 H 19 H Creatinine 0.85 0.66 Estimated GFR > 60 > 60 BUN/Creatinine Ratio 22.4 H 28.8 H Glucose 146 H 177 H Calcium 10.6 H 9.2 Total Bilirubin 0.7 0.7 AST 41 H 34 ALT 22 18 Alkaline Phosphatase 87 75 Total Protein 8.4 H 7.3 Albumin 5.0 4.3 Globulin 3.4 3.0 Albumin/Globulin Ratio 1.5 1.4 Lipase 149 Urine Color Yellow Urine Appearance Clear Urine pH 5.0 Ur Specific [place] 1.015 Urine Protein Negative Urine Glucose (UA) Negative Urine Ketones 1+ H Urine Occult Blood 1+ H Urine Nitrate Negative Urine Bilirubin Negative Urine Urobilinogen 0.2 Ur Leukocyte Esterase Negative Urine RBC 1-5/hpf Urine WBC None seen Ur Squamous Epith Cells 1-5 /hpf Urine Bacteria Few (2-10) H Hyaline Casts 0-1/lpf Ur Culture Indicated? Cult not indicated Vol Urine Centrifuged 10ml (spun) [facility] Medical History Muscle spasm of back Allergies (~2003) Depression (~2006) Osteopenia (~2014) Fracture (~2014) Foot pain (~2013) Asthma Chronic cough GERD (gastroesophageal reflux disease) (~2008) Osteoporosis (~2014) Surgical History Anesthesia S/P ORIF (open reduction internal fixation) fracture (~2014) History of ovarian cystectomy (~1985) Family History Father History of heart disease Mother History of heart disease Social History household members: spouse Tobacco & Substance Use Smoking Status: Never smoker alcohol intake: current Assessment & Plan Assessment and plan (1) Small bowel obstruction: Status: Acute Assessment & Plan narrative: 1. Small-bowel obstruction, possibly due to adhesions from laparoscopic ovarian cystectomy. Recurrent from an episode 2 weeks ago. Risks, benefits, and alternatives were explained to the patient including continued conservative treatment with a nasogastric tube versus surgery. Specific risks of surgery including bleeding, infection, need for bowel resection due to bowel compromise were explained and patient agrees to proceed with laparoscopic enterolysis. She understands that the outcome of the surgery can not be determined at this time, if we find a single band we can remove her nasogastric tube following surgery. If she requires bowel resection she understands she may have the nasogastric tube for a longer period of time. Time-Based Coding :: [TOTAL MINUTES] spent with patient and on the chart (including review of chart, obtaining history, exam, reviewing outside data, placing orders, documenting exam and treatment plan, and counseling patient) on [DATE]. PROFEE Charge Codes Inpatient or Observation consultation: 28294 (modifer -57)
--- NOTE | 2024-07-27 12:54 | SUR.HOLD ---
Patient started vomiting soon after arrival to pre-op. NG reconnected to suction and set to medium intermittent suction per Dr. Peña, who was at the bedside. Patient was also medicated by anesthesia. Vomiting subsided.
[2024-07-27] MEDS: CEFOTETAN 2 GM in SODIUM CHLORIDE 0.9% 100 ML IV (13:15)
--- NOTE | 2024-07-27 13:21 | SUR.OPER ---
Supine on padded OR bed, head on pillow, arms padded and tucked at sides, legs uncrossed, safety belt at thigh, tape over blanket over lower legs .
[2024-07-27] MEDS: BUPIVACAINE 0.25% (PF) 30 ML, EPINEPHrine 0.15 MG INJ (13:33)
--- NOTE | 2024-07-27 14:14 | P.OP_ITS ---
Operative Date/Time/Diagnoses Date of procedure: 07/27/24 Time of procedure: 14:14 Pre-op diagnosis: Recurrent small bowel obstruction Post-op diagnosis: same (No focal transition point, ICG showed good perfusion of the entire bowel and liver) Procedure & Clinicians Procedure: 1. Diagnostic laparoscopy 2. ICG angiography of the mesentery Same procedure as scheduled: Yes Indications: Current small bowel obstruction, recent cardiac ablation Surgeon: Byron Peña Click Yes if Unassisted: Yes Anesthesia Type: General Operative Notes Findings: Dilated bowel from the ligament of Treitz to the terminal ileum without focal transition point. Closure Type: primary Specimen(s): other (Free peritoneal fluid was sent for culture and cytology) Estimated Blood Loss (mL): 1 Blood products transfused: none Procedure in detail: Patient had a bowel obstruction [address] scan demonstrating a bowel obstruction again. Nasogastric tube decompression was not relieving her symptoms. She had a cardiac ablation performed through her right groin within the last week raising concern for a vascular event. She opted for diagnostic laparoscopy. Consent was obtained. Patient was brought to the operating room suite. Time-out was performed. General anesthesia was induced. The patient was placed in supine position with the arms at her side tucked. The abdomen was prepped and draped in usual fashion. A total of 60 mL of 0.25% Marcaine with ep inephrine was infiltrated all trocar sites as well as performing a transversus abdominis plane block and rectus block. 5 mm optical trocar was placed in left upper quadrant pneumoperitoneum was achieved. The bowel was found to be diffusely dilated without any obvious adhesions to the anterior abdominal wall or pelvis. No peritoneal studding or implants. There was free fluid around the liver and in the pelvis. Additional 5 mm trocar was placed at the umbilicus another 5 mm trocar in right lateral abdominal wall. Fluid was sent for cytology and culture. It was not grossly infected appearing. The liver appeared normal. The bowel was run from the ligament of Treitz the terminal ileum and back. There is no transition point noted. It is possible that an internal hernia in the pelvis was spontaneously reduced while positioning the patient into Trendelenburg. The appendix was visualized and normal. The right psoas access site was visualized from the perineal side and there was no evidence of hematoma from the cardiac procedure. The gallbladder was normal. The sigmoid colon was inspected no evidence of diverticular disease or adhesions. ICG was administered and in less than a minute the entire small bowel, SMA distribution showed fluorescence. The NADEEN distribution showed good fluorescence. Later the liver became bright green. We did not wait long enough for biliary imaging or urinary imaging as this was not of concern. The abdomen was inspected again, again no abnormality was found other than a scant amount of free fluid which we had sent. Pneumoperitoneum was relieved. Skin was closed with 4-0 Monocryl and Dermabond. Patient tolerated the procedure well was transported to PACU in stable condition for anticipated returned to her hospital bed. Complications: none Post-operative Condition: stable Disposition: PACU Plan for aftercare: patient had an episode of SVT, which anesthesia recommends continued monitoring
--- NOTE | 2024-07-27 14:17 | CM.DANOTE ---
Pt is a 63 yo female who was re-admitted INPT Status on 07/27/24 for Partial SBO. PCP: Kassidy Ojeda Payer: DENICE/Jonny. EMR was reviewed. Per MD, pt recently discharged after having SBO and went home and returned with abd pains and need for NGT and NPO. Per Surgeon, pt not managed by conservative tx and pt elected for surgical intervention and taken to the OR today. Per RN, pt was very miserable and painful today prior to surgery. SW attempted to meet bedside with pt but she was off the floor for surgery. Per pt's previous admission a couple weeks ago, pt is a resident of [place], she is indp and active at baseline and lives with her spouse and denies any hx of HH or SNF. No barriers identified at this time to patient's safe discharge home w/family to assist; close outpatient f/u recommended. CM team will plan to follow clinical course closely in case any DC needs or concerns arise pending progress after surgery today. LEONIE Hernandez Discharge Planning/Care Management CM Discharge Assessment Start: 07/27/24 14:10 Freq: Status: Active Protocol: Document 07/27/24 14:10 BF (Rec: 07/27/24 14:17 BF [id number]) Discharge Planning Assessment Assigned Plate Molder LEONIE Dewitt DPOA/Assigned Designee Name spouse Emmanuel Contact Information [phone] Advance Directives? No Advance Directives on File No History Provided By Patient,Medical Record Has Patient been admitted in last 30 Yes days? Comment recently admitted for similar and discharged home Prior Living Arrangements House Household Members spouse Type of transporation used prior to Drives own vehicle admit Independent with ADL's Yes Is patient alert and oriented? Yes Caregiver for Another No Comment Pending progress post surg Barriers to Discharge No Discharge Plan Home Transportation Arrangement Family Referrals Initiated None needed Additional Comment pending progress post surg Review Status In Process Please Provide Date Initial DC 07/27/24 Assessment Was Performed Next Review Type Continued Stay Review
--- NOTE | 2024-07-27 14:29 | PATH_ITS ---
Note [facility] Accession Number: [id number] TESTS RESULT FLAG UNITS REF RANGE LAB Clinician Provided Cytology Information No. of containers..01 Other (Miscellaneous) Source: ABDOMINAL FLUID DIAGNOSIS: ABDOMINAL FLUID INCONCLUSIVE. RARE ATYPICAL CELL GROUPS; INSUFFICIENT ATYPICAL VOLUME FOR ANCILLARY STUDIES. PLEASE RESUBMIT FOR CYTOLOGY EVALUATION IF FLUID RE-ACCUMULATES. THIS INTERPRETATION INCLUDES EVALUATION OF A CELL BLOCK. Pathologist ICD10: R18.8 Signed out by: Smiley Garcia MD, Pathologist NPI- [id number] Performed by: Micky Negron, Tools Programmer ([facility]) Gross description: 20 CC, YELLOW, CLOUDY RECEIVED: FRESH IN BLUE CAP CONTAINER.VO /VDU 07/29/2024 0725 Local FLAG LEGEND: L-Low Normal,H-High Normal,LL-Alert Low,HH-Alert High <-Panic Low,>-Panic High,A-Abnormal,AA-Critical Abnormal Performed at: 01 =Z [facility] [address] [place] [address] [address], [place] [address] Leon Tran MD, Performed at: 01 [facility] [address] [place] [address] [address], [place], [place] [id number] MD Leon Tran MD Phone: [phone]
--- NOTE | 2024-07-27 14:42 | DI.RAD.S_ITS ---
PROCEDURE: XR CHEST 1V INDICATIONS: NGT repositioned TECHNIQUE: One view of the chest was acquired. COMPARISON: [facility], CT, CT ABDOMEN PELVIS W CON, 07/26/2024, 23:16. [facility], CR, XR CHEST 1V, 07/27/2024, 0:16. [facility], CR, XR CHEST 1V, 07/09/2024, 1:55. FINDINGS: Surgical changes and devices: Enteric tube coursing into the stomach. The tube has been pulled back compared to earlier this morning. Lungs and pleura: Lungs are clear. No pleural effusions or pneumothorax. Mediastinum: Mediastinal contours appear normal. Heart size is normal. Bones and chest wall: No suspicious bony lesions. Overlying soft tissues appear unremarkable. Prominent bowel gas in the left abdomen. IMPRESSION: Enteric tube with the tip in the stomach. Dictated by: Rakan Banks M.D. on 07/27/2024 at 15:21 Approved by: Rakan Banks M.D. on 07/27/2024 at 15:23
[2024-07-27] MEDS: DEXTROSE 5%-0.9% NS 1,000 ML 100 ML IV (20:07)
[2024-07-28 04:00] VITALS: BP 156/86; PULSE 119; RESP 20; TEMP 37; O2SAT 98
[2024-07-28 05:24] LABS: BUN Creatinine Ratio 30.3 (6-22); Blood Urea Nitrogen 20 mg/dL (7-17); Calcium 8.5 mg/dL (8.4-10.2); Carbon Dioxide 25 mmol/L (22-32); Chloride 108 mmol/L (98-107); Estimated Glomerular Filt Rate > 60 mL/min (>60); Glucose 144 mg/dL (80-110); HEMOLYSIS < 15 (0-50); Sodium 138 mmol/L (137-145)
[2024-07-28] MEDS: DEXTROSE 5%-0.9% NS 1,000 ML 100 ML IV (05:53)
[2024-07-28] MEDS: METOPROLOL TARTRATE 5 MG/5 ML INJ IV (06:49)
--- NOTE | 2024-07-28 07:20 | PM.PN.1 ---
Subjective Subjective Interval history: Summary: She was admitted with recurrent partial small bowel obstruction and went to the OR yesterday for laparotomy. There was no clear obstruction and she had good vascular perfusion when studied. She would 1 episode of transient SVT perioperatively. Subjective: She feels better today. She was hungry. No nausea, or vomiting. Some flatus. Surgeon is going to advance her diet today and we will advance her activity. Exam Vital Signs (past 8 hours): - 07/28/24 04:00 Temperature 98.6 F Pulse Rate 119 H Respiratory Rate 20 Blood Pressure 156/86 H Pulse Oximetry 98 Oxygen Flow Rate 0 Oxygen Delivery Method Room Air Oxygen Flow Rate 0 Narrative Exam Narrative: NAD, alert and oriented. Fluent speech. Lungs are clear, normal rate and effort. Heart is regular, no murmur gallop or rub. Abdomen is soft, non distended. Mild tenderness. Extremities are free of edema. Objective Labs 07/27/24 04:30 07/28/24 04:50 Labs: Laboratory Results - last 24 hr 07/28/24 04:50 Sodium 138 Potassium 4.0 Chloride 108 H Carbon Dioxide 25 BUN 20 H Creatinine 0.66 Estimated GFR > 60 BUN/Creatinine Ratio 30.3 H Glucose 144 H Calcium 8.5 PFSH Medical History Muscle spasm of back Allergies (~2003) Depression (~2006) Osteopenia (~2014) Fracture (~2014) Foot pain (~2013) Asthma Chronic cough GERD (gastroesophageal reflux disease) (~2008) Osteoporosis (~2014) Surgical History Anesthesia S/P ORIF (open reduction internal fixation) fracture (~2014) History of ovarian cystectomy (~1985) Family History Father History of heart disease Mother History of heart disease Social History household members: spouse Smoking Status: Never smoker alcohol intake: current Assessment & Plan Assessment & Plan narrative: 1. Partial recurring small bowel obstruction. Present on admission and active. - No findings on laparotomy on July 27. 2. Dehydration. Present on admission and improved. 3. GERD, present on admission and stable. 4. Asthma, present on admission and stable. 5. When episode of PSVT, resolved. Plan: -advance diet and activity. -monitor abdomen examined pain. -discussed [id number] with surgeon. DVT prophylaxis SCDs and heparin SQ. Code status: full code. 2 MN of hospital care is anticipated, the supports inpatient status. ELY: 07/29. Time-Based Coding :: [TOTAL MINUTES] spent with patient and on the chart (including review of chart, obtaining history, exam, reviewing outside data, placing orders, documenting exam and treatment plan, and counseling patient) on [DATE].
[2024-07-28 08:16] VITALS: BP 137/80; PULSE 101; RESP 14; TEMP 35.6; O2SAT 98
[2024-07-28 12:00] VITALS: BP 144/76; PULSE 98; RESP 15; TEMP 35.8; O2SAT 99
--- NOTE | 2024-07-28 13:05 | PM.PN.1 ---
Subjective Subjective Date Patient Seen: 07/28/24 Interval history: Patient is feeling much better, passing bowel movements, no nausea or vomiting. Would like to try to advance her diet. Exam Vital Signs (past 8 hours): - 07/28/24 08:16 Temperature 96.1 F L Pulse Rate 101 H Respiratory Rate 14 Blood Pressure 137/80 Pulse Oximetry 98 Oxygen Flow Rate 0 Oxygen Delivery Method Room Air Oxygen Flow Rate 0 Narrative Exam Narrative: Gen: NAD, sitting comfortably in bed, appears well HEENT: Sclera are anicteric, head is normocephalic and atraumatic, trachea is midline. CV: RRR, no JVD Resp: clear to auscultation bilaterally, equal chest wall movement bilaterally Abd: soft, nontender, normoactive bowel sounds Ext: no edema, full range of motion Neuro: Cranial nerves II-XII grossly intact, no focal deficits Skin: No erythema or ecchymosis Objective Labs 07/27/24 04:30 07/28/24 04:50 Labs: Laboratory Results - last 24 hr 07/28/24 04:50 Sodium 138 Potassium 4.0 Chloride 108 H Carbon Dioxide 25 BUN 20 H Creatinine 0.66 Estimated GFR > 60 BUN/Creatinine Ratio 30.3 H Glucose 144 H Calcium 8.5 PFSH Medical History Muscle spasm of back Allergies (~2003) Depression (~2006) Osteopenia (~2014) Fracture (~2014) Foot pain (~2013) Asthma Chronic cough GERD (gastroesophageal reflux disease) (~2008) Osteoporosis (~2014) Surgical History Anesthesia S/P ORIF (open reduction internal fixation) fracture (~2014) History of ovarian cystectomy (~1985) Family History Father History of heart disease Mother History of heart disease Social History household members: spouse Smoking Status: Never smoker alcohol intake: current Assessment & Plan Assessment and plan (1) Small bowel obstruction: Status: Acute Assessment & Plan narrative: No adhesions at laparoscopy yesterday. It is possible that an internal hernia or volvulus was reduced during laparoscopy and running the bowel. She feels better today and would like to try to advance her diet. If she eats well, she is having bowel movements she could feasibly be discharged when appropriate per medical service. Time-Based Coding :: [TOTAL MINUTES] spent with patient and on the chart (including review of chart, obtaining history, exam, reviewing outside data, placing orders, documenting exam and treatment plan, and counseling patient) on [DATE].
[2024-07-28] MEDS: ACETAMINOPHEN 325 MG TABLET 975 MG PO (15:47)
--- NOTE | 2024-07-28 17:36 | PM.DS.1 ---
History of Present Illness History of Present Illness Chief complaint: poss bowel obstruction, vomiting Narrative: From night doctor: 63-year-old female with path medical history of GERD, asthma, hysterectomy, ex lap, and with recent small bowel obstruction discharge on July 10, 2024 presents again with abdominal pain/distension and nausea/vomiting. Per the patient's report the patient was doing fine after her discharge. However this evening, the patient started to have increasing abdominal distention, abdominal epigastric pain and nausea and vomiting. Patient states she has not been able to pass gas the whole day. The patient was concerned that the symptoms suggest that she has another recurrent SBO. Otherwise the patient denies any fever, chills, chest pain, shortness of breath or syncope. In our emergency room, the patient was hemodynamically stable stable though slightly hypertensive. WBC was 12 and bicarb was 15 but otherwise labs were benign. CT scan of the abdomen shows partial small bowel obstruction. General surgeon was called who recommended again to place the NGT with conservative management. Additional information: This is her 3rd episode in the last month or so. She was not improving at this time. As of 08 01 she was still vomiting. General surgery has placed her on the OR schedule for a laparoscopy. Discharge Providers Provider Date of admission: 07/27/24 00:14 Discharge Date: 07/28/24 Primary care physician: SARAI Barfield Consults: 07/27/24 05:00 Consult to General Surgery Routine Comment: Consulting Provider: Byron Peña Reason for consultation: small bowel obstruction Has provider been notified: Yes Discharge provider: Daren Tam MD Summary Hospital Course Discharge Diagnosis: 1. Partial recurring small bowel obstruction. Present on admission and improved. 2. Dehydration. Present on admission and improved. 3. GERD, present on admission and stable. 4. Asthma, present on admission and stable. 5. When episode of PSVT, resolved. Hospital Course: She presented with symptoms of recurrent bowel obstruction. She failed to improve and ultimately was taken to the operating room for a laparotomy which was unrevealing. She would normal perfusion study during her surgery as well. There was no clear evidence of a obstruction or transition point or other cause of her symptoms. She did well postoperatively was able to pull the NG tube and advance her diet without difficulty. She was felt to be stable for discharge home and knows to come back if she was recurrent symptoms. Status at Discharge Cognitive/behavioral status at discharge: oriented Functional status at discharge: independent ambulation Overall status at discharge: patient is back to baseline Time Spent with Patient Time spent: Greater than 30 minutes Exam Vital Signs (past 8 hours): - 07/28/24 12:00 Temperature 96.4 F L Pulse Rate 98 H Respiratory Rate 15 Blood Pressure 144/76 H Pulse Oximetry 99 Oxygen Flow Rate 0 Oxygen Delivery Method Room Air Oxygen Flow Rate 0 Narrative Exam Narrative: NAD, alert and oriented. Fluent speech. Lungs are clear, normal rate and effort. Heart is regular, no murmur gallop or rub. Abdomen is soft, non distended. Mild tenderness. Extremities are free of edema. Objective ECG Impression: Normal sinus rhythm Anteroseptal infarct , age undetermined Imaging Chest x-ray: Radiologist's impression: No acute pulmonary process. Nasogastric tube in appropriate location. CT scan - abdomen: Radiologist's impression: Dilated fluid-filled loops of small bowel most consistent with partial small bowel obstruction. Labs 07/27/24 04:30 07/28/24 04:50 Labs: Laboratory Results - last 24 hr 07/28/24 04:50 Sodium 138 Potassium 4.0 Chloride 108 H Carbon Dioxide 25 BUN 20 H Creatinine 0.66 Estimated GFR > 60 BUN/Creatinine Ratio 30.3 H Glucose 144 H Calcium 8.5 PFSH Medical History Muscle spasm of back Allergies (~2003) Depression (~2006) Osteopenia (~2014) Fracture (~2014) Foot pain (~2013) Asthma Chronic cough GERD (gastroesophageal reflux disease) (~2008) Osteoporosis (~2014) Surgical History Anesthesia S/P ORIF (open reduction internal fixation) fracture (~2014) History of ovarian cystectomy (~1985) Family History Father History of heart disease Mother History of heart disease Social History household members: spouse Smoking Status: Never smoker alcohol intake: current Discharge Assessment & Plan Assessment and Plan Assessment: 1. Partial recurring small bowel obstruction. Present on admission and improved. 2. Dehydration. Present on admission and improved. 3. GERD, present on admission and stable. 4. Asthma, present on admission and stable. 5. When episode of PSVT, resolved. Plan of Treatment: Patient will be discharged with a slow advance from clear liquids to a soft mechanical and low residue diet over the next several days. Discharge Plan Discharge Plan Patient Disposition: Home Provider Discharge Comment: Stable for discharge on soft mechanical on low residue diet with slow advance. Discharge orders & Medications Prescriptions: Continued benzonatate 100 mg capsule 100 mg PO BID-TID PRN (Reason: cough) Qty: 90 3RF albuterol sulfate 90 mcg/actuation HFA aerosol inhaler 2 puff inhalation Q6H PRN (Reason: shortness of breath or wheezing) Qty: 8.5 0RF Rx Instructions: if using the albuterol >2x/week to schedule an appointment to discuss maintenance inhaler calcium carbonate [Tums Ultra] 400 mg calcium (1,000 mg) tablet,chewable 400 mg PO DAILY PRN (Reason: Heartburn) cyclobenzaprine 5 mg tablet 5 mg PO BEDTIME PRN (Reason: muscle spasm) Qty: 30 0RF metoprolol succinate 25 mg tablet extended release 24 hr 25 mg PO DAILY esomeprazole magnesium [Nexium] 20 mg Capsule,Delayed Release(Dr/Ec) 20 mg PO BID Follow up/Referrals: Kassidy Ojeda FNP-BC [Primary Care Provider] - Discharge Health Status Multidrug resistant organism: No MDRO Diet/Activity/Treatments Diet: Full Liquid Diet comment: Slwo advance from liquids to soft and lwo residue. Activity: As tolerated. Visit Report/Discharge Packet Instructions: DI for Small Bowel Obstruction, DI for Laparoscopy Stand Alone Forms: Patient Portal/API Discharge Data Primary Care Provider: Kassidy Ojeda
--- NOTE | 2024-07-28 18:09 | PC.NURSE ---
discharge patient teaching done at bedside. Patient states understanding of material reviewed. Bilat. wrist IV's were removed, intact. Tele removed. Patient placed call to spouse for ride home. Patient was escorted by primary nurse, in stable condition. Per pt req. took WC down to private vehicle. Belongings were gather by patient herself.
--- NOTE | 2024-07-28 18:31 | PC.NURSE ---
Discharge Note Patient A&O, VSS, RA, no complaints of pain/discomfort. Discharge packet reviewed with patient, all questions/concerns addressed. PIV discontinued. Patient able to dress self and pack all belongings. Patient taken down via wheelchair to POV.
== END 2024-07-28 18:15 | disposition home or self-care (01) | DRG 357 ==
LOC: ED 07-27 00:14 → AC 07-27 00:16
PROVIDERS: Surgery; Admitting Provider Internal Medicine; Emergency Provider Emergency Medicine; PCP Nurse Practitioner Family; Referring Provider Emergency Medicine; Visit Provider Internal Medicine
PROC: 0DTE0ZZ Resection of Large Intestine, Open Approach (ICD-10-PCS; principal; 2024-07-27 12:30)
DX: K56.600 Partial intestinal obstruction, unspecified as to cause (principal); I47.10 Supraventricular tachycardia, unspecified; E86.0 Dehydration; K21.9 Gastro-esophageal reflux disease without esophagitis; J45.909 Unspecified asthma, uncomplicated
CPT/HCPCS: 36415; 71045; 74177; 80048; 80053; 81001; 83690; 85025; 87070; 87075; 87205; 93005; 96361; 96374; 96375; 96376; 99284; 99285; A9270; J0171; J0330; J1100; J1171; J1644; J2270; J2405; J2704; J2765; J3010; Q9967

== ENCOUNTER → 2024-11-26 11:27 | Outpatient (CLI) | payer MEDICARE, OTHER, SELFPAY ==
[2024-07-27 01:00] VITALS: BMI 21.4
[2024-11-26 12:22] LABS: Add Manual Diff / Slide Review NO; Basophils Absolute Auto 0 /uL (0-100); Basophils Percent Auto 0.6 % (0-2); Eosinophils Absolute Auto 300 /uL (0-450); Eosinophils Percent Auto 5.3 % (2-4); Hematocrit 37.3 % (36-46); Hemoglobin 12.6 g/dL (12.0-16.0); Lymphocytes Absolute Auto 1700 /uL (1100-4500); Lymphocytes Percent Auto 28.4 % (25-40); Mean Corpuscular HGB Conc 33.7 % (30-36); Mean Corpuscular Hemoglobin 30.9 PG (26-34); Mean Corpuscular Volume 91.6 fL (80-100); Monocytes Absolute Auto 600 /uL (0-900); Monocytes Percent Auto 9.1 % (3-14); Neutrophils Absolute Auto 3400 /uL (1500-7000); Neutrophils Percent Auto 56.6 % (50-75); Platelet Count 229 X10^3/uL (150-400); Red Blood Cell Count 4.07 X10^6/uL (4.0-5.2); White Blood Cell Count 6.1 X10^3/uL (4.5-11.0)
[2024-11-26 12:44] LABS: Alanine Aminotransferase 16 IU/L (<35); Albumin 4.7 g/dL (3.5-5.0); Albumin Globulin Ratio 1.9 (1.0-2.8); Alkaline Phosphatase 70 U/L (38-126); Aspartate Aminotransferase 34 IU/L (14-36); BUN Creatinine Ratio 24.4 (6-22); Bilirubin Total 0.6 mg/dL (0.2-1.3); Blood Urea Nitrogen 20 mg/dL (7-17); Calcium 10.3 mg/dL (8.4-10.2); Carbon Dioxide 24 mmol/L (22-32); Chloride 105 mmol/L (98-107); Cholesterol 212 mg/dL (140-199); Estimated Glomerular Filt Rate > 60 mL/min (>60); Globulin 2.5 g/dL (1.7-4.1); Glucose 87 mg/dL (80-110); HDL Cholesterol 82 mg/dL (40-60); HEMOLYSIS < 15 (0-50); LDL Cholesterol Calculated 95 mg/dL (<100); Sodium 139 mmol/L (137-145); Total Protein 7.2 g/dL (6.3-8.2); Triglycerides 177 mg/dL (35-150)
[2024-11-26 12:46] LABS: Potassium 5.9 mmol/L (3.4-5.1)
[2024-11-26 14:51] LABS: Vitamin D 25 Hydroxy (D3) 54.9 ng/mL (30.0-100.0)
== END ==
PROVIDERS: PCP Nurse Practitioner Family; Referring Provider Nurse Practitioner Family; Visit Provider Nurse Practitioner Family
DX: R05.3 Chronic cough (principal); Z13.220 Encounter for screening for lipoid disorders; M81.0 Age-related osteoporosis without current pathological fracture; I47.19 Other supraventricular tachycardia; J45.909 Unspecified asthma, uncomplicated
CPT/HCPCS: 36415; 80053; 80061; 82306; 85025

== ENCOUNTER → 2025-02-15 10:06 | Outpatient (CLI) | payer MEDICARE, OTHER, SELFPAY ==
[2024-07-27 01:00] VITALS: BMI 21.4
--- NOTE | 2025-02-15 10:07 | DI.MG.S_ITS ---
MM screening mammo BI: 02/15/2025. BI-RADS: 2 CLINICAL: 64-year old female for bilateral screening mammogram. Tyrer-Cuzick lifetime risk of 7.2%. No personal or first-degree family history of breast cancer. Current reported family history of breast cancer: maternal grandmother. PRIOR EXAMS 01/09/2024, 09/14/2021. MAMMOGRAPHY TECHNIQUE: 2D and 3D (tomosynthesis) digital mammographic views obtained, with additional images as needed for full coverage. Current study was also evaluated with a Computer Aided Detection (CAD) system. DENSITY C. The breasts are heterogeneously dense, which may obscure small masses. MAMMOGRAPHY FINDINGS Bilateral: Typically-benign vascular calcifications noted. No significant change from comparison. IMPRESSION: * No evidence of malignancy with benign findings. RECOMMENDATIONS Bilateral * Annual screening mammography. OVERALL ASSESSMENT CATEGORY BI-RADS-2: Benign. The [employer] recommends annual screening mammography beginning at age 40 for women with average risk of breast cancer. ELECTRONICALLY SIGNED: Rosa Gorman M.D. on 02/15/2025 at 04:27:08 PM PT Interpreting Station ID: [id number]
== END ==
LOC: MAMMO 10:07
PROVIDERS: PCP Nurse Practitioner Family; Referring Provider Nurse Practitioner Family; Visit Provider Nurse Practitioner Family
DX: Z12.31 Encounter for screening mammogram for malignant neoplasm of breast (principal); R92.333 Mammographic heterogeneous density, bilateral breasts; Z80.3 Family history of malignant neoplasm of breast
CPT/HCPCS: 77063; 77067

== ENCOUNTER 2025-06-24 17:28 | Emergency (ER) | payer MEDICARE, OTHER, SELFPAY ==
[2024-07-27 01:00] VITALS: BMI 21.4
[2025-06-24] VITALS (7 sets, daily range): BP systolic 130–162; BP diastolic 66–85; PULSE 74–109; RESP 16–26; TEMP 36.9; O2SAT 99–100; BMI 21.9
--- NOTE | 2025-06-24 17:38 | DI.RAD.S_ITS ---
PROCEDURE: XR CHEST 1V INDICATIONS: Shortness of breath TECHNIQUE: One view of the chest was acquired. COMPARISON: [facility], CR, XR CHEST 1V, 07/27/2024, 14:41. FINDINGS: Mild bilateral perihilar and lower lobe peribronchial thickening, some of which may be related expiratory result; however, bronchitis, viral infection, asthma or other process should be considered. Bilateral apical pleural thickening/scarring. Calcifications of the aortic arch. No pneumothorax, no pleural effusion, no lobar consolidation. Cardiopericardial silhouette and pulmonary vasculature within normal limits. IMPRESSION: Peribronchial thickening as discussed above. Bilateral apical pleural thickening/scarring. If symptoms persist or worsen, or there is high clinical suspicion of thoracic abnormality, CT chest could be performed. Dictated by: Richard Chavira M.D. on 06/24/2025 at 20:11 Approved by: Richard Chavira M.D. on 06/24/2025 at 20:16
--- NOTE | 2025-06-24 17:38 | EKG_ITS ---
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
[2025-06-24 17:56] LABS: Add Manual Diff / Slide Review NO; Hematocrit 40.1 % (36-46); Hemoglobin 13.8 g/dL (12.0-16.0); Lymphocytes Absolute Auto 3200 /uL (1100-4500); Mean Corpuscular HGB Conc 34.3 % (30-36); Mean Corpuscular Hemoglobin 31.3 PG (26-34); Mean Corpuscular Volume 91.1 fL (80-100); Platelet Count 388 X10^3/uL (150-400)
--- NOTE | 2025-06-24 18:03 | ED_ITS ---
HPI - General Adult General Chief complaint: Shortness of Breath/Dyspnea Stated complaint: SOB, cough x 2wks, weakness Time Seen by Provider: 06/24/25 17:42 Source: patient and family Mode of arrival: Wheelchair History of Present Illness HPI narrative: 64-year-old female with history of SVT status post ablation July 2024 Dr. Brigida Gee for which he is taking metoprolol, denies history of congestive heart failure, denies history of chronic lung disease, has used her inhalers in the past at home, no home oxygen, complains of 2 weeks duration of dry cough, home COVID test negative last week, prior COVID vaccination. Denies chest pain, racing heart sensation. Denies history of blood clots to legs or lungs, denies leg pain or swelling symptoms. No recent antibiotics. Has inhaler that she uses at home, that is nearly out. Does not have a spacer to use with her home inhalers. She has tried [id number] dextromethorphan and has tried Tessalon Perles, not helping her cough. Related Data Home Medications ?Medication ?Instructions ?Recorded ?Confirmed calcium carbonate (Tums Ultra) 400 mg PO DAILY PRN Hea rtburn 07/13/24 06/24/25 pantoprazole 40 mg tablet,delayed 40 mg PO DAILY 06/24 release Previous Rx's ?Medication ?Instructions ?Recorded benzonatate 100 mg capsule 100 mg PO BID-TID PRN cough #90 12/06/23 caps cyclobenzaprine 5 mg tablet 5 mg PO BEDTIME PRN muscle spasm 02/12/25 #30 tabs metoprolol succinate 25 mg 25 mg PO DAILY #90 tabs tablet,extended release 24 hr prednisone 20 mg tablet 40 mg (2 x 20 mg) PO DAILY 5 days 06/24/25 #10 tabs Allergies Allergy/AdvReac Type Severity Reaction Status Date / Time No Known Drug Allergies Allergy Verified 06/24/25 17:39 Patient History Medical History Muscle spasm of back Allergies (~2003) Depression (~2006) Osteopenia (~2014) Fracture (~2014) Foot pain (~2013) Asthma Chronic cough GERD (gastroesophageal reflux disease) (~2008) Osteoporosis (~2014) Surgical History Anesthesia S/P ORIF (open reduction internal fixation) fracture (~2014) History of ovarian cystectomy (~1985) Family History Father History of heart disease Mother History of heart disease Social History household members: spouse Smoking Status: Never smoker alcohol intake: current Smoking Status: Never smoker alcohol intake frequency: 0-2 drinks per day Alcohol type: wine Exam Narrative Exam Narrative: GENERAL: Well-developed patient, in mild distress. HEAD: Atraumatic. Normocephalic. EYES: Pupils equal round and reactive. Extraocular motions intact. No scleral icterus. No injection or drainage. ENT: Nose without bleeding, purulent drainage. Throat without erythema, tonsillar hypertrophy or exudate. Airway patent. NECK: Trachea midline. Non tender CARDIOVASCULAR: Regular rate and rhythm without murmurs, gallops, or rubs. RESPIRATORY: Clear to auscultation. Breath sounds equal bilaterally. No wheezes, rales, or rhonchi. GASTROINTESTINAL: Abdomen soft, non-tender, nondistended. EXTREMITIES: No edema or joint tenderness. BACK: Nontender without deformity or crepitance. No flank tenderness. NEURO: AOx3. Motor functions grossly nonfocal. SKIN: No rash or erythema of visible areas Initial Vital Signs Initial Vital Signs: Vital Signs Temperature 98.4 F 06/24/25 17:39 Pulse Rate 109 H 06/24/25 17:39 Respiratory Rate 18 06/24/25 17:39 Blood Pressure 162/83 H 06/24/25 17:39 Pulse Oximetry 100 06/24/25 17:39 Oxygen Delivery Method Room Air 06/24/25 17:39 Course Orders Ordered: Discontinued Medications Albuterol (Albuterol Hfa Mdi 60 Puff/8 Gm Inhaler (Covid Only)) 2 puff INH NOW ONE Stop: 06/24/25 18:07 Albuterol (Albuterol Hfa Prepack) 1 box MISC DIRECTED ONE Stop: 06/24/25 18:41 Last Admin: 06/24/25 18:46 Dose: 1 box Documented By: DILCIA Metoprolol Succinate (Metoprolol Er 25 Mg Tablet) 25 mg PO NOW ONE Stop: 06/24/25 18:19 Last Admin: 06/24/25 18:30 Dose: 25 mg Documented By: TANNER Vital Signs Vital signs: Vital Signs - 8 hr 06/24/25 17:39 Temperature 98.4 F Pulse Rate 109 H Respiratory Rate 18 Blood Pressure 162/83 H Pulse Oximetry 100 Oxygen Delivery Method Room Air Medical Decision Making Lab Data Lab results reviewed: Yes I reviewed the patient's lab results. Lab results narrative: White blood cell count 8700, hemoglobin 13.9, platelets adequate. Glucose 95. Renal function, serum CO2 electrolytes normal. Liver functions normal. Troponin negative. BNP normal. COVID influenza RSV negative. 06/24/25 17:45 06/24/25 17:45 Labs: Lab Results 06/24/25 06/24/25 Range/Units 17:45 18:10 WBC 8.7 (4.5-11.0) X10^3/uL RBC 4.40 (4.0-5.2) X10^6/uL Hgb 13.8 (12.0-16.0) g/dL Hct 40.1 (36-46) % MCV 91.1 (80-100) fL MCH 31.3 (26-34) PG MCHC 34.3 (30-36) % RDW 12.9 (11.6-14.8) % Plt Count 388 (150-400) X10^3/uL Neut % (Auto) 49.5 L (50-75) % Lymph % (Auto) 37.2 (25-40) % [place] % (Auto) 7.9 (3-14) % Eos % (Auto) 4.6 H (2-4) % Baso % (Auto) 0.8 (0-2) % Neut # (Auto) 4300 (9072-7735) /uL Lymph # (Auto) 3200 (9115-4217) /uL [place] # (Auto) 700 (0-900) /uL Eos # (Auto) 400 (0-450) /uL Baso # (Auto) 100 (0-100) /uL PT 10.8 (9.4-12.5) SECONDS INR 1.0 (0.9-1.3) Sodium 139 (137-145) mmol/L Potassium 3.6 (3.4-5.1) mmol/L Chloride 103 (98-107) mmol/L Carbon Dioxide 23 (22-32) mmol/L BUN 20 H (7-17) mg/dL Creatinine 0.78 (0.52-1.04) mg/dL Estimated GFR > 60 (>60) mL/min BUN/Creatinine Ratio 25.6 H (6-22) Glucose 95 (70-99) mg/dL Lactate 2.1 (0.7-2.1) mmol/L Calcium 10.0 (8.4-10.2) mg/dL Total Bilirubin 0.3 (0.2-1.3) mg/dL AST 35 (14-36) IU/L ALT 17 (<35) IU/L Alkaline Phosphatase 89 (38-126) U/L Troponin I < 0.012 (0.01-0.034) ng/mL NT-Pro-B Natriuret Pep 58 (<125) pg/mL Total Protein 8.7 H (6.3-8.2) g/dL Albumin 5.1 H (3.5-5.0) g/dL Globulin 3.6 (1.7-4.1) g/dL Albumin/Globulin Ratio 1.4 (1.0-2.8) SARS-CoV-2 (PCR) Negative (Negative) Influenza A (RT-PCR) Flu a negative (NEGATIVE) Influenza B (RT-PCR) Flu b negative (NEGATIVE) RSV (PCR) Negative (Negative) Imaging Data Chest x-ray: My Impression: Single-view, portable study. No obvious pulmonary infiltrate, pneumothorax, cardiomegaly, CHF, effusion. ED wet read. Radiologist's Impression: [address] [address] XRay Report Signed Patient: Evonne Sánchez MR#: [id number] : 1960 Acct:[id number] Age/Sex: 64 / F Date of Service: 06/24/25 Loc: ED Accession Number: [id number] Procedure: XR chest 1V Ordering Provider: Micky Rosario MD PROCEDURE: XR CHEST 1V INDICATIONS: Shortness of breath TECHNIQUE: One view of the chest was acquired. COMPARISON: [facility], CR, XR CHEST 1V, 07/27/2024, 14:41. FINDINGS: Mild bilateral perihilar and lower lobe peribronchial thickening, some of which may be related expiratory result; however, bronchitis, viral infection, asthma or other process should be considered. Bilateral apical pleural thickening/scarring. Calcifications of the aortic arch. No pneumothorax, no pleural effusion, no lobar consolidation. Cardiopericardial silhouette and pulmonary vasculature within normal limits. IMPRESSION: Peribronchial thickening as discussed above. Bilateral apical pleural thickening/scarring. If symptoms persist or worsen, or there is high clinical suspicion of thoracic abnormality, CT chest could be performed. Dictated by: Richard Chavira M.D. on 06/24/2025 at 20:11 Approved by: Richard Chavira M.D. on 06/24/2025 at 20:16 ECG Data Attestation: I personally reviewed and interpreted this ECG as follows: Interpretation: 1738, sinus tachycardia with rate of 107, no obvious ST segment elevation or depression changes. Anteroseptal Q-waves. TX 138, QRS 68, QTC 469. MDM Narrative Medical decision making narrative: 64-year-old female with history of SVT status post ablation last year, taking metoprolol XL twice daily, has not yet taken evening dose, has inhalers to use at home, with 2 weeks' duration of dry cough, persisting cough. Refractory to Tessalon and [id number] Robitussin DM. She is about out of her inhaler, does not use a spacer with the inhaler. Afebrile, sirs screen negative. Lungs clear, no crackles or wheezes, speaks in full sentences. No lower extremity edema or calf tenderness. EKG, chest x-ray, labs pending. EKG sinus tachycardia, no obvious ischemic changes. Chest x-ray shows bronchitic changes, asthmatic changes, no lobar infiltrate. See radiology report. Lab data: White blood cell count 8700, hemoglobin 13.9, platelets adequate. Glucose 95. Renal function, serum CO2 electrolytes normal. Liver functions normal. Troponin negative. BNP normal. COVID influenza RSV negative. Patient willing to try inhaler, might increase her heart rate, history of SVT noted, we will give evening dose of Toprol-XL 25 mg oral. Albuterol inhaler with spacer ordered, that can be taken home at discharge, 2 puffs now. Did not hear bronchospasm wheezing specifically, cough control measure, hold steroid for now. Feels better after bronchodilator, heart rate improved after evening dose oral Toprol XL. Send prescription for 5 day pulse prednisone if helpful to further control cough symptoms, for associated bronchospasm if desired. Discharged home. Follow up with PCP or this next week if not improving. Return precautions discussed. Discharged home with family. Discharge Plan Departure Patient Disposition: Home Clinical Impression: Acute upper respiratory infection, Breath shortness Activity Restrictions/Additional Instructions: Ongoing cough for the last 2 weeks, some shortness of breath. No wheezing or crackles or abnormal breath sounds, speaking in full sentences. Chest x-ray without obvious pneumonia changes or heart failure. EKG and blood testing not suggestive of heart attack problems. We dispensed refill of your albuterol inhaler, with instructions to use spacer which was also dispensed, take 2 puffs 4 times daily for the next week and then as needed. I did not hear any wheezing, but sometimes people can have persistent cough from subclinical bronchospasm, consider prednisone if you are not improving with the inhaler, prescription for 5 day pulse of prednisone sent to your pharmacy, to use if needed. Recheck with your regular doctor later this week if not improving. Return to this/nearest emergency department for any change worsening symptoms or any concerns prior. Prescriptions: New prednisone 20 mg tablet 40 mg PO DAILY 5 Days Qty: 10 0RF No Action benzonatate 100 mg capsule 100 mg PO BID-TID PRN (Reason: cough) Qty: 90 3RF metoprolol succinate 25 mg tablet extended release 24 hr 25 mg PO DAILY Qty: 90 0RF pantoprazole 40 mg tablet,delayed release (DR/EC) 40 mg PO DAILY calcium carbonate [Tums Ultra] 400 mg calcium (1,000 mg) tablet,chewable 400 mg PO DAILY PRN (Reason: Heartburn) cyclobenzaprine 5 mg tablet 5 mg PO BEDTIME PRN (Reason: muscle spasm) Qty: 30 0RF Referrals: Kassidy Ojeda FNP-BC [Primary Care Provider, Family Practice] Stand Alone Forms: Patient Portal/API
[2025-06-24 18:04] LABS: INR 1.0 (0.9-1.3); Prothrombin Time 10.8 SECONDS (9.4-12.5)
[2025-06-24 18:07] LABS: Lactate (Lactic Acid) 2.1 mmol/L (0.7-2.1)
[2025-06-24 18:08] LABS: Alanine Aminotransferase 17 IU/L (<35); Albumin 5.1 g/dL (3.5-5.0); Albumin Globulin Ratio 1.4 (1.0-2.8); Alkaline Phosphatase 89 U/L (38-126); Blood Urea Nitrogen 20 mg/dL (7-17); Calcium 10.0 mg/dL (8.4-10.2); Carbon Dioxide 23 mmol/L (22-32); Chloride 103 mmol/L (98-107); Estimated Glomerular Filt Rate > 60 mL/min (>60); Globulin 3.6 g/dL (1.7-4.1); Glucose 95 mg/dL (70-99); HEMOLYSIS < 15 (0-50); Potassium 3.6 mmol/L (3.4-5.1); Sodium 139 mmol/L (137-145); Total Protein 8.7 g/dL (6.3-8.2)
[2025-06-24 18:19] LABS: NT-proBNP (BNP-Adult 18+) 58 pg/mL (<125); Troponin I < 0.012 ng/mL (0.01-0.034)
[2025-06-24] MEDS: METOPROLOL ER 25 MG TABLET PO (18:30)
[2025-06-24] MEDS: ALBUTEROL HFA PREPACK 1 BOX MISC (18:46)
[2025-06-24 19:04] LABS: Influenza A - CEPHEID Flu A NEGATIVE (NEGATIVE); Influenza B - CEPHEID Flu B NEGATIVE (NEGATIVE)
[2025-06-24 19:06] LABS: COVID-19 CEPHEID 4-PLEX PCR Negative (Negative)
[2025-06-24 19:28] LABS: Reflexed Lactate in 2 Hours Y
== END 2025-06-24 19:56 | disposition home or self-care (01) ==
PROVIDERS: Emergency Medicine; Emergency Provider Emergency Medicine; PCP Nurse Practitioner Family
DX: J06.9 Acute upper respiratory infection, unspecified (principal); R06.02 Shortness of breath; R05.9 Cough, unspecified
CPT/HCPCS: 36415; 71045; 80053; 83605; 83880; 84484; 85025; 85610; 87637; 93005; 93010; 99284; A9270